=== PATIENT | female | born 1980 | race Caucasian/White ===

== ENCOUNTER → 2016-07-11 | Outpatient (CLI) | payer BC ==
[~2016-07-11] MED LIST: ALBU8.5H2 IH; AMOX1TAB12; AZIT250T5 PO; BUDE180A IH; CITA40TA11; CTRZ10T PO; CYCL10TA9 PO; DILTIAZEM 2% RC; DOCU100T7 PO; ESCI20TA2 PO; HYDR-1231 PO; LACT1CAP8 PO; METR500T21; MULT-985 PO; ONDA4TAB8 PO; PRD10T PO; PROM5SYR PO; SULF-222
--- OUTSIDE RECORDS SUMMARY | 2016-07-11 19:10 | XMS REPORT ---
Author Author ABI GANT Organization [employer] Address Unknown Phone Unavailable Care Team Providers Care Clinical Office Technician Name Role Phone ABI GANT CP Unavailable Allergies, Adverse Reactions, Alerts Substance Reaction Event Type N.K.D.A. Info Not Available Non Drug Allergy Problems Problem Type Condition Code Onset Dates Condition Status Assessment Pre-employment examination Z02.1 Active Medications No Known Medications Procedures Procedure Coding System Code Date DRUG SCREEN NON TLC DEVICES CPT-4 58903 Mar 31, 2016 Office Visit, New Pt., Level 1 CPT-4 36714 Mar 31, 2016 Vital Signs Date/Time: Mar 31, 2016 Cardiac Monitoring Heart Rate 86 bpm Weight 283.2 lbs Height 67 in BMI 44.35 Index Blood Pressure Diastolic 88 mmHg Blood Pressure Systolic 138 mmHg Results Name Result Date Reference Range Unit Abnormality Flag URINE DRUG SCREEN (IN HOUSE) ----BUP Negative 20160331 ----TCA Negative 20160331 ----MDMA Negative 20160331 ----BENZO Negative 20160331 ----OPIATE Negative 20160331 ----THC Negative 20160331 ----MTD Negative 20160331 ----AMPH Negative 20160331 ----BAR Negative [id number] ----PCP Negative 20160331 ----MAMP Negative 20160331 ----OXY Negative [id number] ----Lot # [id number] ----Exp date 20160331 ----Control + [id number] ----COCAINE Negative 20160331 Summary Purpose eClinicalWorks Submission
--- NOTE | 2016-07-11 19:49 | Diagnostic Imaging Report ---
INDICATION: Left foot pain. AP, oblique, and lateral views of the left foot are obtained. FINDINGS: There is prominent plantar calcaneal spurring. No acute fracture or dislocation is identified. No abnormal lytic or sclerotic focus is seen, and there is no radiopaque foreign body. IMPRESSION: No acute abnormality. Dictated by: Dictated on workstation # [id number]
== END ==
LOC: RAD 19:06
PROVIDERS: ATTEND Nurse Practitioner Family
DX: S93.602A Unspecified sprain of left foot, initial encounter (principal); X58.XXXA Exposure to other specified factors, initial encounter; Y99.8 Other external cause status
CPT/HCPCS: 73630

== ENCOUNTER 2016-08-23 18:25 | Emergency (ER) | payer BC ==
[~2016-08-23] VITALS: Ht 170.2 cm; Wt 129.3 kg
[~2016-08-23 18:25] MED LIST changes: -AMOX1TAB12; -CITA40TA11; -LACT1CAP8 PO; -METR500T21; -ONDA4TAB8 PO; -SULF-222
[2016-08-23] MEDS ORDERED: SULF-222 (18:35)
[2016-08-23] MEDS ORDERED: METR500T21 (18:35)
[2016-08-23] MEDS ORDERED: CITA40TA11 (18:35)
[2016-08-23] MEDS ORDERED: AMOX1TAB12 (18:35)
[2016-08-23] MEDS ORDERED: LACTATED RINGERS 1,000 ML IV ONE (18:36)
[2016-08-23] MEDS ORDERED: FAMOTIDINE 20MG/2ML IV (PEPCID) IV STA (18:36)
[2016-08-23] MEDS ORDERED: ONDANSETRON 4 MG/2 ML (SDV) Z0FRAN IVP ONE (18:45)
[2016-08-23 18:47] LABS: BASOPHILS # (AUTO) 0.1 10^3/uL (0.0-0.1); BASOPHILS % (AUTO) 1 % (0-10); EOSINOPHILS # (AUTO) 0.4 10^3/uL (0.0-0.3); EOSINOPHILS % (AUTO) 5 % (0-10); LYMPHOCYTES # (AUTO) 1.7 X 10^3 (1.0-4.0); LYMPHOCYTES % (AUTO) 20 % (12-44); MEAN CORPUSCULAR HEMOGLOBIN 29 PG (25-34); MEAN CORPUSCULAR HGB CONC 35 G/DL (32-36); MEAN CORPUSCULAR VOLUME 83 FL (80-99); MONOCYTES # (AUTO) 1.2 X 10^3 (0.0-1.0); MONOCYTES % (AUTO) 14 % (0-12); NEUTROPHILS # (AUTO) 5.2 X 10^3 (1.8-7.8); NEUTROPHILS % (AUTO) 61 % (42-75); PLATELET COUNT 252 10^3/uL (130-400); RED BLOOD COUNT 5.43 10^6/uL (4.35-5.85); RED CELL DISTRIBUTION WIDTH 13.8 % (10.0-14.5); WHITE BLOOD COUNT 8.5 10^3/uL (4.3-11.0)
[2016-08-23] MEDS ORDERED: NS 100 ML (IVPB) BAG IV ONE (19:00)
[2016-08-23] MEDS ORDERED: IOHEXOL 350 MG/ML 100 ML (OMNIPAQUE 350) VIAL IV ONE (19:00)
--- NOTE | 2016-08-23 19:04 | ED GI ---
General Chief Complaint: Abdominal/GI Problems Stated Complaint: NAUSEA,VOMITING Nursing Triage Note: c/o abdomen cramping, n/v/d x 10 days, reports has been seen by obgyn x 1 and [facility] [place] 2 for same complaints Sepsis Screen: No Definite Risk Source of Information: Patient History of Present Illness Time Seen By Provider: 18:28 Initial Comments PT STATES SHE HAS BEEN ILL SINCE 08/13/16 STATES SHE HAS HAD NAUSEA/VOMITING/DIARRHEA, ABDOMINAL PAIN AND CRAMPING--WORSE FOR THE LAST 3 DAYS STATES PAIN IS "CONSTANT NUMBING PAIN AND SHARP PAINS" ALL OVER ENTIRE ABDOMEN C/O FEELING LETHARGIC HAS VOMITED X 6 BETWEEN 0630 AND 0930--LAST EPISODE WAS AT 0930 HAS HAD WATERY DIARRHEA X 1 THIS AM STATES SHE HAD 2 PIECES OF TOAST AND APPLESAUCE THIS AM, AND DRANK WATER, BUT THREW IT UP. SINCE WAKING AT 1615, SHE HAS KEPT SIPS OF GATORADE HAS URGENCY TO URINATE, BUT ONLY TRICKLES OF URINE OUT STATES SHE WAS SEEN AT [facility] LAST SUNDAY AND DX WITH UTI SAW HER PUBLIC HEALTH ENGINEER, DR. EVANGELISTA THE NEXT DAY AND PELVIC ULTRASOUND WAS ORDERED AND REPORTEDLY NORMAL WENT BACK TO [facility] YESTERDAY AND HAD LAB, STOOL TESTING, AND UA--WAS GIVEN RX FOR AUGMENTIN, FLAGYL AND BACTRIM STATES SHE CALLED [facility] THIS AM AND WAS TOLD TO STOP AUGMENTIN AND START BRATS DIET STATES SHE WENT BACK TO SLEEP AT 0930 AND SLEPT UNTIL 1615, AND WHEN SHE WOKE UP SHE HAD DEVELOPED A FEVER OF 100.3--SHE CALLED [facility] AGAIN AND WAS TOLD TO RESTART AUGMENTIN AND TO COME TO ER NO KNOWN SICK CONTACTS OR SUSPICIOUS FOODS NO HISTORY OF SIMILAR PCP: DR. JANG Allergies and Home Medications Allergies Coded Allergies: No Known Drug Allergies (Unverified , 05/26/13) Home Medications Amoxicillin/Potassium Clav 1 Each Tablet, #20 (Reported) Citalopram Hydrobromide 40 Mg Tablet, #30 (Reported) Lactobacillus Acidophilus 1 Each Capsule, 2 EACH PO QID, #80 Prescribed by: LEYDA AYON on 08/23/162008 Metronidazole 500 Mg Tablet, #42 (Reported) Ondansetron 4 Mg Tab.rapdis, 4-8 MG PO Q4H, #15 Prescribed by: LEYDA AYON on 08/23/162008 Sulfamethoxazole/Trimethoprim 1 Each Tablet, #20 (Reported) Review of Systems Constitutional: see HPI, fever, malaise, weakness EENTM: No Symptoms Reported Respiratory: No Symptoms Reported Cardiovascular: No Symptoms Reported Gastrointestinal: See HPI, Abdominal Pain, Diarrhea, Nausea, Poor Appetite, Poor Fluid Intake, Vomiting Genitourinary: No Symptoms Reported Musculoskeletal: no symptoms reported Skin: no symptoms reported Psychiatric/Neurological: No Symptoms Reported Endocrine: No Symptoms Reported Hematologic/Lymphatic: No Symptoms Reported Past Tnxpajv-Bnknqz-[id number] Hx Patient Social History Alcohol Use: Occasionally Uses (NO ETOH X 1 MONTH, PER PT ON 08/23/16) Recreational Drug Use: Yes (THC--LAST USED 1 WEEK AGO, PER PT ON 08/23/16) Smoking Status: Current Everyday Smoker (1/2 PPD) Type Used: Cigarettes 2nd Hand Smoke Exposure: No Recent Foreign Travel: No Contact w/Someone Who Travel: No Recent Infectious Disease Expo: No Recent Hopitalizations: No Immunizations Up To Date Tetanus Booster (TDap): Less than 5yrs Seasonal Allergies Seasonal Allergies: Yes Surgeries HX Surgeries: Yes (POLYPS REMOVED, PARTIAL HYST/OVARIES INTACT, ) Surgeries: Hysterectomy Respiratory Hx Respiratory Disorders: Yes (ASTHMA) Respiratory Disorders: Asthma Cardiovascular Hx Cardiac Disorders: No Neurological Hx Neurological Disorders: No Reproductive System Hx Reproductive Disorders: Yes 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 Genitourinary Hx Genitourinary Disorders: Yes Genitourinary Disorders: Kidney Stones Gastrointestinal Hx Gastrointestinal Disorders: No Musculoskeletal Hx Musculoskeletal Disorders: No Endocrine Hx Endocrine Disorders: No HEENT HX ENT Disorders: No Cancer Hx Cancer: No Psychosocial Hx Psychiatric Problems: Yes Behavioral Health Disorders: Anxiety, Depression Integumentary HX Skin/Integumentary Disorder: No Blood Transfusions Hx Blood Disorders: No Physical Exam Vital Signs VS - Last 72 Hours, by Label 08/23/16 08/23/16 18:30 20:22 Temp 97.8 Pulse 95 75 Resp 18 18 B/P (MAP) 144/93 Pulse Ox 96 98 Capillary Refill : Less Than 3 Seconds General Appearance: WD/WN, no apparent distress, obese, other (DOES NOT APPEAR ILL OR TO BE IN ANY DISCOMFORT--WALKS UPRIGHT AND MOVES QUICKLY WITHOUT DIFFICULTY, [id number] WITHOUT DIFFICULTY) HEENT: PERRL/EOMI, other (ORAL MUCOSA MOIST) Neck: normal inspection Respiratory: normal breath sounds, no respiratory distress, no accessory muscle use Cardiovascular: normal peripheral pulses, regular rate, rhythm, no edema, no JVD, no murmur Gastrointestinal: normal bowel sounds, non tender, soft, no organomegaly, no pulsatile mass, No hernia, No mass Extremities: normal inspection Back: normal inspection, no CVA tenderness, no vertebral tenderness Neurologic/Psychiatric: 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-XII nml as tested, no motor/sensory deficits, alert, normal mood/affect, oriented x 3 Skin: normal color, warm/dry, No rash, tattoos/piercings (+ TATTOOS) Focused Exam Lactic Acid Level Laboratory Tests Test 08/23/16 19:07 Lactic Acid Level 0.85 MMOL/L (0.50-2.00) Progress/Results/Core Measures Results/Orders Lab Results Laboratory Tests Test 08/23/16 18:35 08/23/16 19:07 08/23/16 19:30 Range/Units White Blood Count 8.5 4.3-11.0 10^3/uL Red Blood Count 5.43 4.35-5.85 10^6/uL Hemoglobin 15.6 11.5-16.0 G/DL Hematocrit 45 35-52 % Mean Corpuscular Volume 83 80-99 FL Mean Corpuscular Hemoglobin 29 25-34 PG Mean Corpuscular Hemoglobin Concent 35 32-36 G/DL Red Cell Distribution Width 13.8 10.0-14.5 % Platelet Count 252 130-400 10^3/uL Mean Platelet Volume 10.0 7.4-10.4 FL Neutrophils (%) (Auto) 61 42-75 % Lymphocytes (%) (Auto) 20 12-44 % Monocytes (%) (Auto) 14 H 0-12 % Eosinophils (%) (Auto) 5 0-10 % Basophils (%) (Auto) 1 0-10 % Neutrophils # (Auto) 5.2 1.8-7.8 X 10^3 Lymphocytes # (Auto) 1.7 1.0-4.0 X 10^3 Monocytes # (Auto) 1.2 H 0.0-1.0 X 10^3 Eosinophils # (Auto) 0.4 H 0.0-0.3 10^3/uL Basophils # (Auto) 0.1 0.0-0.1 10^3/uL Sodium Level 138 135-145 MMOL/L Potassium Level 3.8 3.6-5.0 MMOL/L Chloride Level 106 98-107 MMOL/L Carbon Dioxide Level 21 21-32 MMOL/L Anion Gap 11 5-14 MMOL/L Blood Urea Nitrogen 9 7-18 MG/DL Creatinine 1.11 0.60-1.30 MG/DL Estimat Glomerular Filtration Rate 55 BUN/Creatinine Ratio 8 Glucose Level 120 H 70-105 MG/DL Calcium Level 9.2 8.5-10.1 MG/DL Magnesium Level 2.0 1.8-2.4 MG/DL Total Bilirubin 0.8 0.1-1.0 MG/DL Aspartate Amino Transf (AST/SGOT) 43 H 5-34 U/L Alanine Aminotransferase (ALT/SGPT) 73 H 0-55 U/L Alkaline Phosphatase 76 40-136 U/L Total Protein 7.5 6.4-8.2 G/DL Albumin 4.2 3.2-4.5 G/DL Amylase Level 39 25-125 U/L Lipase 13 8-78 U/L Serum Alcohol < 10 <10 MG/DL Lactic Acid Level 0.85 0.50-2.00 MMOL/L Urine Color YELLOW Urine Clarity SLIGHTLY CLOUDY Urine pH 6 5-9 Urine Specific [place] 1.020 1.016-1.022 Urine Protein 2+ H NEGATIVE Urine Glucose (UA) NEGATIVE NEGATIVE Urine Ketones 1+ H NEGATIVE Urine Nitrite NEGATIVE NEGATIVE Urine Bilirubin NEGATIVE NEGATIVE Urine Urobilinogen 1 NORMAL MG/DL Urine Leukocyte Esterase 2+ H NEGATIVE Urine RBC (Auto) 3+ H NEGATIVE Urine RBC 2-5 H /HPF Urine WBC 0-2 /HPF Urine Squamous Epithelial Cells 0-2 /HPF Urine Crystals NONE /LPF Urine Bacteria FEW H /HPF Urine Casts NONE /LPF Urine Mucus NEGATIVE /LPF Urine Culture Indicated NO Urine Opiates Screen NEGATIVE NEGATIVE Urine Oxycodone Screen NEGATIVE NEGATIVE Urine Methadone Screen NEGATIVE NEGATIVE Urine Propoxyphene Screen NEGATIVE NEGATIVE Urine Barbiturates Screen NEGATIVE NEGATIVE Ur Tricyclic Antidepressants Screen NEGATIVE NEGATIVE Urine Phencyclidine Screen NEGATIVE NEGATIVE Urine Amphetamines Screen NEGATIVE NEGATIVE Urine Methamphetamines Screen NEGATIVE NEGATIVE Urine Benzodiazepines Screen POSITIVE H NEGATIVE Urine Cocaine Screen NEGATIVE NEGATIVE Urine Cannabinoids Screen POSITIVE H NEGATIVE My Orders Orders - LEYDA AYON DO Saline Lock/Iv-Start (08/23/16 18:36) Orthostatic Vital Signs (08/23/16 18:36) Monitor-Rhythm Ecg Trace Only (08/23/16 18:36) Ct Abdomen/Pelvis W (08/23/16 18:36) Alcohol (08/23/16 18:36) Amylase (08/23/16 18:36) Cbc With Automated Diff (08/23/16 18:36) Comprehensive Metabolic Panel (08/23/16 18:36) Drug Screen Stat (Urine) (08/23/16 18:36) Lactic Acid Analyzer (08/23/16 18:36) Lipase (08/23/16 18:36) Magnesium (08/23/16 18:36) Ua Culture If Indicated (08/23/16 18:36) Blood Culture (08/23/16 18:36) Acute Abd Series (08/23/16 18:36) Ondansetron Injection (Zofran Injectio (08/23/16 18:45) Famotidine Injection (Pepcid Injection) (08/23/16 18:36) Saline Lock/Iv-Start (08/23/16 18:36) Lactated Ringers (Lr 1000 Ml Iv Solution (08/23/16 18:36) Iohexol Injection (Omnipaque 350 Mg/Ml 1 (08/23/16 19:00) Ns (Ivpb) (Sodium Chloride 0.9% Ivpb Bag (08/23/16 19:00) Hepatitis Panel Acute (08/23/16 19:12) Urine Culture (08/23/16 19:55) Medications Given in ED Current Medications Medications Dose Ordered Sig/Iveth Route Start Time Stop Time Status Last Admin Dose Admin Iohexol 100 ml ONCE ONCE IV 08/23/16 19:00 08/23/16 19:01 DC 08/23/16 19:17 100 ML Lactated Ringer's 1,000 ml @ 0 mls/hr Q0M ONCE IV 08/23/16 18:36 08/23/16 18:39 DC 08/23/16 19:32 0 MLS/HR Ondansetron HCl 8 mg ONCE ONCE IVP 08/23/16 18:45 08/23/16 18:46 DC 08/23/16 19:32 8 MG Sodium Chloride 100 ml ONCE ONCE IV 08/23/16 19:00 08/23/16 19:01 DC 08/23/16 19:17 80 ML Vital Signs/I&O Vital Sign - Last 12Hours 08/23/16 08/23/16 18:30 20:22 Temp 97.8 Pulse 95 75 Resp 18 18 B/P (MAP) 144/93 Pulse Ox 96 98 Blood Pressure Mean: 110 Progress Note : Progress Note NO SYMPTOMS DURING ER STAY--NO ABDOMINAL PAIN, NO VOMITING OR DIARRHEA, AND NO FEVER WILL ORDER OUTPATIENT STOOL STUDIES Diagnostic Imaging Comments ACUTE ABDOMEN XRAYS--LEFT RENAL STONE, OTHERWISE NO ACUTE PROCESS CT ABDOMEN/PELVIS--NO ACUTE PROCESS, 5MM LEFT INTRARENAL STONE/NON-OBSTRUCTING, 2.5 CM RIGHT OVARIAN CYST PER RADIOLOGIST REPORTS @ 1945 Reviewed: Reviewed by Me Departure Impression Impression: Primary Impression: Gastroenteritis Additional Impressions: MILDLY ELEVATED LIVER ENZYMES Urinary tract infection Disposition: HOME, SELF-CARE Condition: Stable Departure-Patient Inst. Referrals: JUANCARLOS JANG MD (PCP/Family) Primary Care Physician Patient Instructions: [id number], Liver Function Test, Urinary Tract Infection, Adult (DC) Add. Discharge Instructions: CONTINUE BACTRIM DS 1 PILL TWICE A DAY, AND CONTINUE FLAGYL 500 MG 4 TIMES A DAY CLEAR LIQUIDS--WATER, BROTH, JELLO, GATORADE BRATS DIET--BANANAS, RICE, APPLESAUCE, TOAST, SALTINES FOLLOW UP WITH DR. JANG IN 2 DAYS FOR FURTHER CARE All discharge instructions reviewed with patient and/or family. Voiced understanding. Scripts Ondansetron (Zofran Odt) 4 Mg Tab.rapdis 4-8 MG PO Q4H for Nausea/Vomiting, #15 TAB Prov: LEYDA AYON DO 08/23/16 Lactobacillus Acidophilus (Acidophilus) 1 Each Capsule 2 EACH PO QID, #80 CAP Prov: LEYDA AYON DO 08/23/16 LEYDA AYON DO Aug 23, 2016 19:04
[2016-08-23 19:09] LABS: ALANINE AMINOTRANSFERASE 73 U/L (0-55); ALBUMIN 4.2 G/DL (3.2-4.5); ALCOHOL < 10 MG/DL (<10); AMYLASE 39 U/L (25-125); ANION GAP 11 MMOL/L (5-14); ASPARTATE AMINO TRANSFERASE 43 U/L (5-34); BILIRUBIN,TOTAL 0.8 MG/DL (0.1-1.0); BLOOD UREA NITROGEN 9 MG/DL (7-18); BUN/CREATININE RATIO 8; CALCIUM 9.2 MG/DL (8.5-10.1); CARBON DIOXIDE 21 MMOL/L (21-32); CHLORIDE 106 MMOL/L (98-107); CREATININE SERUM 1.11 MG/DL (0.60-1.30); GFR ESTIMATED 55; GLUCOSE 120 MG/DL (70-105); LIPASE 13 U/L (8-78); POTASSIUM 3.8 MMOL/L (3.6-5.0); SODIUM 138 MMOL/L (135-145); TOTAL PROTEIN 7.5 G/DL (6.4-8.2)
--- NOTE | 2016-08-23 19:20 | Diagnostic Imaging Report ---
INDICATION: Abdominal pain. EXAMINATION: PA chest and supine and upright abdominal images were obtained. FINDINGS: There is a 4 mm calculus projecting over the lower pole of the left kidney. Bowel gas pattern is normal. There is no intraperitoneal free air. IMPRESSION: Left renal calculus. Dictated by: Dictated on workstation # [id number]
--- NOTE | 2016-08-23 19:35 | Diagnostic Imaging Report ---
PROCEDURE: CT abdomen and pelvis with contrast. TECHNIQUE: Multiple contiguous axial images were obtained through the abdomen and pelvis after administration of intravenous contrast. INDICATION: Abdominal pain and fever Lung bases are clear. Liver appears normal. Gallbladder is present. Pancreas is normal. Spleen is not enlarged. Adrenals appear normal. There is a 5 mm calculus in the inferior pole of the left kidney. There is no hydronephrosis. Aorta is unremarkable. Appendix is normal. Small bowel is not dilated. Colon appears normal. There is a 2.5 cm cyst on the right ovary. Uterus is surgically absent. Left ovary is present and appears normal. There is no intraperitoneal free air or free fluid. IMPRESSION: Left nephrolithiasis. No acute abnormality seen. Dictated by: Dictated on workstation # [id number]
[2016-08-23 19:43] LABS: BILIRUBIN,URINE NEGATIVE (NEGATIVE); KETONES,URINE 1+ (NEGATIVE); LEUKOCYTE ESTERASE ,URINE 2+ (NEGATIVE); NITRITE,URINE NEGATIVE (NEGATIVE); PH,URINE 6 (5-9); PROTEIN,URINE 2+ (NEGATIVE); UROBILINOGEN,URINE 1 MG/DL (NORMAL)
[2016-08-23 19:52] LABS: SQUAMOUS EPITHELIAL CELL,UR 0-2 /HPF; WBC,URINE 0-2 /HPF
[2016-08-23] MEDS ORDERED: ONDA4TAB8 PO (20:09)
[2016-08-23] MEDS ORDERED: LACT1CAP8 PO (20:09)
[2016-08-23 20:22] VITALS: BP 117/78
--- OUTSIDE RECORDS SUMMARY | 2016-09-24 17:59 | XMS REPORT ---
Author Author ABI GANT Organization [employer] Address Unknown Phone Unavailable Care Team Providers Care Warrant Server Name Role Phone ABI GANT CP Unavailable Allergies, Adverse Reactions, Alerts Substance Reaction Event Type N.K.D.A. Info Not Available Non Drug Allergy Problems Problem Type Condition Code Onset Dates Condition Status Assessment Pre-employment examination Z02.1 Active Medications No Known Medications Procedures Procedure Coding System Code Date DRUG SCREEN NON TLC DEVICES CPT-4 14892 Mar 31, 2016 Office Visit, New Pt., Level 1 CPT-4 01514 Mar 31, 2016 Vital Signs Date/Time: Mar [...] Negative 20160331 ----OXY Negative 20160331 ----Lot # [id number] ----Exp date 20160331 ----Control + 20160331 ----COCAINE Negative 20160331 Summary Purpose eClinicalWorks Submission
--- OUTSIDE RECORDS SUMMARY | 2016-09-24 18:00 | XMS REPORT ---
Author ISAAC Benítez [employer] Address Unknown Phone Unavailable Care Team Providers Care Distillery Laborer Name Role Phone ISAAC BLANKENSHIP CP Unavailable Allergies No Known Allergies Problems Problem Type Condition Code Onset Dates Condition Status Assessment Visit for TB skin test Z11.1 Active Medications No Known Medications Procedures Procedure Coding System Code Date TB INTRADERMAL TEST CPT-4 56676 Apr 03, 2016 Results Name Result Date Reference Range Unit Abnormality Flag TB INTRADERMAL ----INDURATION (mm) 0 20160405 0 - 15 mm ----Time Read 16120160405 ----Date read 04/05/201620160405 ----Injected by Jeronimo 20160405 ----Exp. date 20160405 ----Read by Jeronimo 20160405 ----Date injected 04/03/201620160405 ----RESULTS (Pos/Neg) negative 20160405 ----Time Injected 13020160405 ----Site LFA 20160405 ----Lot # [id number] Summary Purpose [employer]ClinicalWorks Submission
--- OUTSIDE RECORDS SUMMARY | 2016-09-24 18:00 | XMS REPORT | Continuity of Care Document ---
Author Author [facility] Organization [facility] Address Unknown Phone Unavailable Allergies Active Description Code Type Severity Reaction Onset Reported/Identified Relationship to Patient Clinical Status Yes No Known Drug Allergies [id number] Drug Allergy Unknown N/ A 05/26/2013 Medications Problems Date Dx Coded Attending Type Code Diagnosis Diagnosed By 05/26/2013 AMELIA MENARD Ot 844.9 SPRAIN OF KNEE LEG NOS 05/26/2013 AMELIA MENARD Ot 959.7 LOWER LEG INJURY NOS 05/26/2013 AMELIA MENARD Ot E000.8 OTHER EXTERNAL CAUSE STATUS 05/26/2013 AMELIA MENARD Ot E003.2 ACTIVITIES INVG SNOW SKIING/BOARDING/ SLE 05/26/2013 AMELIA MENARD Ot E849.[address] NEC 05/26/2013 AMELIA MENARD Ot E927.0 OVEREXERTION FROM SUDDEN STRENUOUS MOVEM 04/03/2014 LAINE TORRES, JUANCARLOS R Ot 780.60 04/03/2014 LAINE TORRES, JUANCARLOS R Ot 787.91 04/06/2014 JUANCARLOS JANG MD R Ot 780.60 04/06/2014 JUANCARLOS JANG MD R Ot 787.91 04/27/2014 LAINE TORRES, JUANCARLOS R Ot 780.60 04/27/2014 LAINE TORRES, JUANCARLOS R Ot 787.91 12/30/2014 EDGARD CLANCY CLAMP OPERATOR Ot 466.0 ACUTE BRONCHITIS 12/30/2014 EDGARD CLANCY CLAMP OPERATOR Ot 786.2 COUGH 01/15/2015 LAINE TORRES, JUANCARLOS R Ot 786.2 06/14/2015 NAVA RAMOS DOR L Ot F17.210 NICOTINE DEPENDENCE, CIGARETTES, UNCOMPL 06/14/2015 RACHEL KLEIN TOSHIA L Ot K64.4 RESIDUAL HEMORRHOIDAL SKIN TAGS 07/27/2015 Ot 786.2 07/27/2015 Ot 786.52 07/27/2015 Ot 807.01 07/27/2015 Ot E000.8 07/27/2015 Ot E928.9 07/27/2015 LAINE TORRES, JUANCARLOS R Ot 490 07/27/2015 LAINE TORRES, JUANCARLOS R Ot 780.60 07/27/2015 LAINE TORRES, JUANCARLOS R Ot 787.91 07/27/2015 LAINE TORRES, JUANCARLOS R Ot 786.2 07/27/2015 EVERARDO HANNA DO Ot Z01.818 07/27/2015 EVERARDO HANNA DO Ot K60.2 ANAL FISSURE, UNSPECIFIED 07/27/2015 HANNA EVERARDO KLEIN Ot K62.1 RECTAL POLYP 07/27/2015 HANNA EVERARDO KLEIN Ot Z80.0 FAMILY HISTORY OF MALIGNANT NEOPLASM OF 07/11/2016 Ot 786.2 COUGH 07/11/2016 Ot 786.52 PAINFUL RESPIRATION 07/11/2016 Ot 807.01 FRACTURE ONE RIB-CLOSED 07/11/2016 Ot E000.8 OTHER EXTERNAL CAUSE STATUS 07/11/2016 Ot E928.9 ACCIDENT NOS 07/11/2016 LAINE TORRES, JUANCARLOS R Ot 490 BRONCHITIS NOS 07/11/2016 LAINE TORRES, JUANCARLOS R Ot 780.60 FEVER, UNSPECIFIED 07/11/2016 LAINE TORRES, JUANCARLOS R Ot 787.91 DIARRHEA 07/11/2016 LAINE TORRES, JUANCARLOS R Ot 786.2 COUGH 07/11/2016 HANNAEVERARDO CABRERA DO Ot Z01.818 ENCOUNTER FOR OTHER PREPROCEDURAL EXAMIN 07/18/2016 CHARO CARRINGTON Ot S93.602A UNSPECIFIED SPRAIN OF LEFT FOOT, INITIAL 07/18/2016 CHARO CARRINGTON Ot X58.XXXA EXPOSURE TO OTHER SPECIFIED FACTORS , INI 07/18/2016 CHARO CARRINGTON Ot Y99.8 OTHER EXTERNAL CAUSE STATUS 07/20/2016 CHARO CARRINGTON Ot S93.602A UNSPECIFIED SPRAIN OF LEFT FOOT, INITIAL 07/20/2016 CHARO CARRINGTON Ot X58.XXXA EXPOSURE TO OTHER SPECIFIED FACTORS , INI 07/20/2016 CHARO CARRINGTON Ot Y99.8 OTHER EXTERNAL CAUSE STATUS 08/23/2016 GABO DO, LEYDA K Ot F17.210 NICOTINE DEPENDENCE, CIGARETTES, UNCOMPL 08/23/2016 GABO DO, LEYDA K Ot K52.9 NONINFECTIVE GASTROENTERITIS AND COLITIS 08/23/2016 GABO DO, LEYDA K Ot N20.0 CALCULUS OF KIDNEY 08/23/2016 GABO DO, LEYDA K Ot N39.0 URINARY TRACT INFECTION, SITE NOT SPECIF 08/23/2016 GABO DO, LEYDA K Ot N83.201 UNSPECIFIED OVARIAN CYST, RIGHT SIDE 08/23/2016 GABO DO, LEYDA K Ot R11.2 NAUSEA WITH VOMITING, UNSPECIFIED 08/24/2016 GABO DO, LEYDA K Ot F17.210 NICOTINE DEPENDENCE, CIGARETTES, UNCOMPL 08/24/2016 GABO DO, LEYDA K Ot K52.9 NONINFECTIVE GASTROENTERITIS AND COLITIS 08/24/2016 GABO DO, LEYDA K Ot N20.0 CALCULUS OF KIDNEY 08/24/2016 GABO DO, LEYDA K Ot N39.0 URINARY TRACT INFECTION, SITE NOT SPECIF 08/24/2016 GABO DO, LEYDA K Ot N83.201 UNSPECIFIED OVARIAN CYST, RIGHT SIDE 08/24/2016 GABO DO, LEYDA K Ot R11.2 NAUSEA WITH VOMITING, UNSPECIFIED 09/08/2016 GABO DO, LEYDA K Ot R19.7 DIARRHEA, UNSPECIFIED Procedures Results Test Result Range Complete blood count (CBC) with automated white blood cell (WBC) differential - 08/23/16 18:35 Blood leukocytes automated count (number/volume) 8.5 10*3/ uL 4.3-11.0 Blood erythrocytes automated count (number/volume) 5.43 10*6 /uL 4.35-5.85 Venous blood hemoglobin measurement (mass/volume) 15.6 g/dL 11.5-16.0 Blood hematocrit (volume fraction) 45 % 35-52 Automated erythrocyte mean corpuscular volume 83 [foz_us] 80-99 Automated erythrocyte mean corpuscular hemoglobin (mass per erythrocyte) 29 pg 25-34 Automated erythrocyte mean corpuscular hemoglobin concentration measurement ( mass/volume) 35 g/dL 32-36 Automated erythrocyte distribution width ratio 13.8 % 10.0-14.5 Automated blood platelet count (count/volume) 252 10*3/uL 130-400 Automated blood platelet mean volume measurement 10.0 [foz_ us] 7.4-10.4 Automated blood neutrophils/100 leukocytes 61 % 42-75 Automated blood lymphocytes/100 leukocytes 20 % 12-44 Blood monocytes/100 leukocytes 14 % 0-12 Automated blood eosinophils/100 leukocytes 5 % 0-10 Automated blood basophils/100 leukocytes 1 % 0-10 Blood neutrophils automated count (number/volume) 5.2 10*3 1.8-7.8 Blood lymphocytes automated count (number/volume) 1.7 10*3 1.0-4.0 Blood monocytes automated count (number/volume) 1.2 10*3 0.0-1.0 Automated eosinophil count 0.4 10*3/uL 0.0-0.3 Automated blood basophil count (count/volume) 0.1 10*3/uL 0.0-0.1 Comprehensive metabolic panel - 08/23/16 18:35 Serum or plasma sodium measurement (moles/volume) 138 mmol/ L 135-145 Serum or plasma potassium measurement (moles/volume) 3.8 mmol/L 3.6-5.0 Serum or plasma chloride measurement (moles/volume) 106 mmol /L 98-107 Carbon dioxide 21 mmol/L 21-32 Serum or plasma anion gap determination (moles/volume) 11 mmol/L 5-14 Serum or plasma urea nitrogen measurement (mass/volume) 9 mg /dL 7-18 Serum or plasma creatinine measurement (mass/volume) 1.11 mg /dL 0.60-1.30 Serum or plasma urea nitrogen/creatinine mass ratio 8 NRG Serum or plasma creatinine measurement with calculation of estimated glomerular filtration rate 55 NRG Serum or plasma glucose measurement (mass/volume) 120 mg/dL 70-105 Serum or plasma calcium measurement (mass/volume) 9.2 mg/dL 8.5-10.1 Serum or plasma total bilirubin measurement (mass/volume) 0.8 mg/dL 0.1-1.0 Serum or plasma alkaline phosphatase measurement (enzymatic activity/volume) 76 U/L 40-136 Serum or plasma aspartate aminotransferase measurement (enzymatic activity/ volume) 43 U/L 5-34 Serum or plasma alanine aminotransferase measurement (enzymatic activity/volume ) 73 U/L 0-55 Serum or plasma protein measurement (mass/volume) 7.5 g/dL 6.4-8.2 Serum or plasma albumin measurement (mass/volume) 4.2 g/dL 3.2-4.5 Magnesium - 08/23/16 18:35 Magnesium 2.0 mg/dL 1.8-2.4 Serum or plasma amylase measurement (enzymatic activity/volume) - 08/23/16 18: 35 Serum or plasma amylase measurement (enzymatic activity/volume) 39 U/L 25-125 Lipase - 08/23/16 18:35 Lipase 13 U/L 8-78 Serum or plasma ethanol measurement (mass/volume) - 08/23/16 18:35 Serum or plasma ethanol measurement (mass/volume) < mg/dL <10 Blood lactic acid measurement (moles/volume) - 08/23/16 19:07 Blood lactic acid measurement (moles/volume) 0.85 mmol/L 0.50-2.00 Bacterial blood culture - 08/23/16 19:07 Bacterial blood culture NG NRG Acute hepatitis panel - 08/23/16 19:07 Confirmatory quantitative serum or plasma hepatitis B virus surface antigen measurement Non-Reactive Non-Reactive Hepatitis A virus IgM antibody assay Non-Reactive Non-Reactive Hepatitis B virus core IgM antibody assay Non-Reactive Non-Reactive Serum hepatitis C virus antibody detection Non-Reactive Non-Reactive Complete urinalysis with reflex to culture - 08/23/16 19:30 Urine color determination YELLOW NRG Urine clarity determination SLIGHTLY CLOUDY NRG Urine pH measurement by test strip 6 5- 9 Specific gravity of urine by test strip 1.020 1.016-1.022 Urine protein assay by test strip, semi-quantitative 2+ NEGATIVE Urine glucose detection by automated test strip NEGATIVE NEGATIVE Erythrocytes detection in urine sediment by light microscopy 3+ NEGATIVE Urine ketones detection by automated test strip 1+ NEGATIVE Urine nitrite detection by test strip NEGATIVE NEGATIVE Urine total bilirubin detection by test strip NEGATIVE NEGATIVE Urine urobilinogen measurement by automated test strip (mass/volume) 1 mg/dL NORMAL Urine leukocyte esterase detection by dipstick 2+ NEGATIVE Automated urine sediment erythrocyte count by microscopy (number/high power field) [HPF] NRG Automated urine sediment leukocyte count by microscopy (number/high power field ) [HPF] NRG Bacteria detection in urine sediment by light microscopy FEW NRG Squamous epithelial cells detection in urine sediment by light microscopy 0-2 NRG Crystals detection in urine sediment by light microscopy NONE NRG Casts detection in urine sediment by light microscopy NONE NRG Mucus detection in urine sediment by light microscopy NEGATIVE NRG Complete urinalysis with reflex to culture NO NRG Urine drug screening test - 08/23/16 19:30 Urine phencyclidine detection by screening method NEGATIVE NEGATIVE Urine benzodiazepines detection by screening method POSITIVE NEGATIVE Urine cocaine detection NEGATIVE NEGATIVE Urine amphetamines detection by screening method NEGATIVE NEGATIVE Urine methamphetamine detection by screening method NEGATIVE NEGATIVE Urine cannabinoids detection by screening method POSITIVE NEGATIVE Urine opiates detection by screening method NEGATIVE NEGATIVE Urine barbiturates detection NEGATIVE NEGATIVE Screening urine tricyclic antidepressants detection NEGATIVE NEGATIVE Urine methadone detection by screening method NEGATIVE NEGATIVE Urine oxycodone detection NEGATIVE NEGATIVE Urine propoxyphene detection NEGATIVE NEGATIVE Bacterial urine culture - 08/23/16 19:30 URINE CULTURE RESULTS <10,000/ML NRG Bacterial blood culture - 08/23/16 19:30 Bacterial blood culture NG NRG [id number] - 08/23/16 21:30 RESULTS INDETERMINANT; MOLECULAR TEST TO FOLLOW NRG Stool leukocytes detection by light microscopy - 08/23/16 21:30 FECAL WBC RESULTS OCCASIONAL WBC OBSERVED ON DIRECT SMEAR NRG FECAL NOTE FECAL LEUKOCYTES MAY BE INTERMITTENTLY PRESENT OR NRG FECAL NOTE UNEVENLY DISTRIBUTED IN STOOL SPECIMENS, AND WBC NRG FECAL NOTE MORPHOLOGY DEGRADES DURING TRANSPORT NRG FECAL NOTE NOTE: NRG Clostridium difficile detection - 08/23/16 21:30 C DIFF MOLECULAR RESULT Negative for toxigenic C diff by DNA amplification NRG Stool bacteria identification by culture - 08/23/16 21:30 Stool bacteria identification by culture N2 NRG Encounters ACCT No. Visit Date/Time Discharge Status Pt. Type Provider Facility Loc./Unit Complaint [id number] 08/23/2016 18:27:00 2016 20:21:00 DIS Emergency GABO DO LEYDA K [facility] ER NAUSEA,VOMITING [id number] 07/27/2015 07:50:00 2015 10:00:00 DIS Outpatient EVERARDO HANNA DO [facility] SDC ANAL FISSURE [id number] 06/14/2015 09:24:00 2015 10:32:00 DIS Emergency TOSHIA RAMOS DO [facility] ER RECTAL PAIN [id number] 12/30/2014 20:01:00 2014 20:48:00 DIS Emergency EDGARD CLANCY APRN [facility] ER COUGH;SOA [id number] 12/29/2014 11:04:00 2014 23:59:59 CLS Outpatient JUANCARLOS JANG MD [facility] RAD PERSISTENT COUGH [id number] 04/02/2014 13:59:00 2013 23:59:59 CLS Outpatient JUANCARLOS JANG MD [facility] LAB FEVER,DIARRHEA [id number] 05/26/2013 11:02:00 2013 13:30:00 DIS Emergency AMELIA MENARD [facility] ER LEFT KNEE INJURY [id number] 02/20/2013 15:59:00 2012 23:59:59 CLS Outpatient JUANCARLOS JANG MD [facility] LAB PERSISTANT COUGH,FEVER [id number] 08/23/2016 22:17:00 ACT Outpatient LEYDA AYON DO [facility] LAB DIARRHEA [id number] 07/11/2016 19:06:00 ACT Outpatient CHARO CARRINGTON [facility] RAD FOOT SPRAIN LEFT INITIAL ENCOUNTER [id number] 07/23/2015 05:42:00 ACT Outpatient EVERARDO HANNA DO [facility] PREOP COLONOSCOPY [id number] 08/18/2011 11:04:00 Document Registration [id number] 08/01/2011 11:18:00 Document Registration [id number] 05/17/2011 12:14:00 Document Registration
== END 2016-08-23 20:21 | disposition home or self-care (01) ==
LOC: EDUNIT# 18:25 → ER 18:27
DX: K52.9 Noninfective gastroenteritis and colitis, unspecified (principal); N20.0 Calculus of kidney; N39.0 Urinary tract infection, site not specified; N83.201 Unspecified ovarian cyst, right side; F17.210 Nicotine dependence, cigarettes, uncomplicated
CPT/HCPCS: 36415; 74022; 74177; 80053; 80074; 80306; 80320; 81000; 82150; 83605; 83690; 83735; 85025; 87040; 87088; 96361; 96374; 96375

== ENCOUNTER → 2016-08-23 | Outpatient (CLI) | payer BC | LOC: LAB 22:17 | PROVIDERS: ATTEND Emergency Medicine | DX: R19.7 Diarrhea, unspecified (principal) | CPT/HCPCS: 87045; 87046; 87324; 87449; 87493; 89055 ==

== ENCOUNTER 2016-10-20 18:39 | Emergency (ER) | payer BC ==
[~2016-10-20] VITALS: Ht 170.2 cm; Wt 129.3 kg
[~2016-10-20 18:39] MED LIST changes: +AMOX1TAB12; +CITA40TA11; +LACT1CAP8 PO; +METR500T21; +ONDA4TAB8 PO; +SULF-222
[2016-10-20] MEDS ORDERED: [UNRECOGNIZED DRUG - CODE] (19:08)
--- NOTE | 2016-10-20 19:37 | ED GI ---
General Chief Complaint: Rect Problems Stated Complaint: ANAL PAIN Nursing Triage Note: patient reports was recently diagnosed with an anal fissure and was given a cream script from Dr. Acosta, patient reports that she ran out of cream today and wasn't able to get another script. patient reports she is to follow up with Karla on sunday Sepsis Screen: No Definite Risk Source of Information: Patient, RN Notes Reviewed Exam Limitations: No Limitations History of Present Illness Time Seen By Provider: 19:20 Initial Comments Patient presents c/ c/o rectal pain secondary to an anal fissure dx by Dr. Acosta. Has been using Diltiazem cream topically and doing sitz baths. Ran out of the cream today and called Dr. Acosta's office who was supposedly to call in a RF to [facility], but when she checked c/ them just prior to them closing this PM, they had no record of a RF being authorized. Is suppose to f/u lucy/ Dr. Acosta on Sunday. Just needs something to get her thru the weekend. Rates her pain an 8/10. Timing/Duration: Constant, Other (going on for couple weeks) Severity/Quality: Severe (8/10), Sharp, Stabbing Location: Other (rectal) Radiation: No Radiation Activities at Onset: Other (unknown) Modifying Factors: Worsens With Defecating, Improves With Other (certain positions help and others worsen her pain ) Associated Symptoms: Denies Symptoms Allergies and Home Medications Allergies Coded Allergies: No Known Drug Allergies (Unverified , 05/26/13) Home Medications Citalopram Hydrobromide 40 Mg Tablet, #30 (Reported) Diltiazem HCl 10 Gm Powder, #30 (Reported) Hydrocodone/Acetaminophen 1 Each Tablet, 1 EACH PO Q6H, #24 Ref 0 Prescribed by: MANUEL DUFFY on 10/20/161940 Review of Systems Constitutional: see HPI Gastrointestinal: See HPI, Other (rectal pain) All Other Systems Reviewed Negative Unless Noted: Yes (Negative excepted noted.) Past Zinlsom-Fxdswc-Riaagi Hx Patient Social History Alcohol Use: Denies Use Recreational Drug Use: No Smoking Status: Current Everyday Smoker Type Used: Cigarettes 2nd Hand Smoke Exposure: No Recent Foreign Travel: No Contact w/Someone Who Travel: No Recent Infectious Disease Expo: No Recent Hopitalizations: No Immunizations Up To Date Tetanus Booster (TDap): Less than 5yrs Seasonal Allergies Seasonal Allergies: Yes Surgeries HX Surgeries: Yes (POLYPS REMOVED, PARTIAL HYST/OVARIES INTACT, ) Surgeries: Hysterectomy Respiratory Hx Respiratory Disorders: Yes (ASTHMA) Respiratory Disorders: Asthma Cardiovascular Hx Cardiac Disorders: No Neurological Hx Neurological Disorders: No Reproductive System 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 Genitourinary Hx Genitourinary Disorders: No Genitourinary Disorders: Kidney Stones Gastrointestinal Hx Gastrointestinal Disorders: No Musculoskeletal Hx Musculoskeletal Disorders: No Endocrine Hx Endocrine Disorders: No HEENT HX ENT Disorders: No Cancer Hx Cancer: No Psychosocial Hx Psychiatric Problems: Yes Behavioral Health Disorders: Anxiety, Depression Integumentary HX Skin/Integumentary Disorder: No Blood Transfusions Hx Blood Disorders: No Physical Exam Vital Signs VS - Last 72 Hours, by Label 10/20/16 10/20/16 19:03 19:44 Temp 98.2 98.2 Pulse 77 77 Resp 18 18 B/P (MAP) 150/105 Pulse Ox 98 98 Capillary Refill : Less Than 3 Seconds General Appearance: WD/WN, moderate distress, obese Respiratory: no respiratory distress Cardiovascular: regular rate, rhythm Gastrointestinal: other (obese) Rectal: deferred Neurologic/Psychiatric: no motor/sensory deficits, alert, oriented x 3 Skin: warm/dry Progress/Results/Core Measures Results/Orders Vital Signs/I&O Vital Sign - Last 12Hours 10/20/16 10/20/16 19:03 19:44 Temp 98.2 98.2 Pulse 77 77 Resp 18 18 B/P (MAP) 150/105 Pulse Ox 98 98 Blood Pressure Mean: 120 Departure Impression Impression: Primary Impression: Anal fissure Disposition: 01 HOME, SELF-CARE Condition: Stable Departure-Patient Inst. Decision time for Depature: 19:36 Referrals: EVERARDO ACOSTA FLOYD R MD (PCP/Family) Primary Care Physician Patient Instructions: Anal Fissure (DC) Scripts Lidocaine HCl (Lidocaine) 35 Gm Oint 35 GM TP Q6H Y for rectal pain, #1 TUBE 0 Refills Prov: MANUEL DUFFY DO 10/21/16 Hydrocodone/Acetaminophen (Hydrocodon-Acetaminophn 10-325) 1 Each Tablet 1 EACH PO Q6H for Pain, #24 TAB 0 Refills Prov: MANUEL DUFFY DO 10/20/16 MANUEL DUFFY DO Oct 20, 2016 19:37
[2016-10-20] MEDS ORDERED: HYDR-3820 PO (19:41)
[2016-10-20 19:44] VITALS: BP 148/98
[2016-10-21] MEDS ORDERED: LD5O35 TP (04:16)
== END 2016-10-20 19:44 | disposition home or self-care (01) ==
LOC: EDUNIT# 18:39 → ER 18:40
DX: K60.2 Anal fissure, unspecified (principal); F17.210 Nicotine dependence, cigarettes, uncomplicated
CPT/HCPCS: 99282

== ENCOUNTER → 2016-10-24 | Day surgery (SDC) | payer BC ==
[~2016-10-24] VITALS: Ht 170.2 cm; Wt 129.3 kg
[~2016-10-24] MED LIST changes: +HC A30CR4 RC; +HYDR-3820 PO; +LD5O35 TP; +NS IV 1000 ML 1,000 ML IV STA; +NS IV 1000 ML 1,000 ML ONE; +[UNRECOGNIZED DRUG - CODE]; +fentaNYL INJECTION 100 MCG/2 ML AMP ONE; +proPOfol 200 MG/20 ML (DIPRIVAN) VIAL IV ONE
[2016-10-24 11:45] VITALS: BP 129/77
--- NOTE | 2016-10-24 12:32 | Progress Note-Pre Operative ---
Pre-Operative Progress Note H&P Reviewed The H&P was reviewed, patient examined and no changes noted. Date Seen by Provider: Oct 24, 2016 Time Seen by Provider: 12:32 Date H&P Reviewed: Oct 24, 2016 Time H&P Reviewed: 12:32 Pre-Operative Diagnosis: anal fissure EVERARDO HANNA DO Oct 24, 2016 12:32 pm
--- NOTE | 2016-10-24 13:11 | Discharge Inst-Simple/Standard ---
Discharge Inst-Standard Patient Instructions/Follow Up Plan of Care/Instructions/FU: Follow up in two weeks with Dr. Acosta Continue to use Diatizem cream as directed and the analpram as directed. Keep stool soft with colace. Increase fluid intake. Activity as Tolerated: Yes Discharge Diet: No Restrictions DOMINGO SCHULTZ APRN Oct 24, 2016 13:11
[2016-10-24 13:15] VITALS: BP 130/80
--- NOTE | 2016-10-24 13:18 | Progress Note-Post Operative ---
Post-Operative Progess Note Surgeon (s)/Bods Developer (s) Surgeon EVERARDO HANNA DO Bods Developer: na Pre-Operative Diagnosis anal fissure Post-Operative Diagnosis posterior anal fissure, questionable proctitis Procedure & Operative Findings Date of Procedure 10/24/16 Procedure Performed/Findings flexible sigmoidoscopy with cold rectal biopsies Anesthesia Type per diesel power shovel operator Estimated Blood Loss Estimated blood loss (mL): none Specimens/Packing Specimens Removed rectal biopsies EVERARDO HANNA DO Oct 24, 2016 13:18
[2016-10-24 13:35] VITALS: BP 114/77
[2016-10-24 13:51] VITALS: BP 114/77
--- NOTE | 2016-10-24 14:24 | OPERATIVE REPORT ---
DATE OF SERVICE: 10/24/2016 PREOPERATIVE DIAGNOSIS: Anal fissure. POSTOPERATIVE DIAGNOSES: Anal fissure, questionable proctitis. PROCEDURE: Flexible sigmoidoscopy with colorectal biopsies. SURGEON: Everardo Acosta DO ANESTHESIA: Per BOBJ DEVELOPER. ESTIMATED BLOOD LOSS: None. COMPLICATIONS: None. INDICATIONS: The patient is a 36-year-old female who has had rectal pain. She appears to have anal fissure on exam in the office. She was recommended to have a sigmoidoscopy performed. She understands risks and benefits and wished to proceed with procedure. Consent was signed in the chart. PROCEDURE IN DETAIL: The patient was taken to the endoscopy suite, placed in left lateral recumbent position. Timeout was performed. First digital rectal exam was performed. There appeared to be a small anal fissure posteriorly. Some slight hemorrhoidal disease. There were no other palpable polyps, masses or ulcerations. There was significant rectal tone. Scope was inserted in the rectum and advanced through the rectum and into the sigmoid colon to the descending colon. There were no polyps, masses or ulcerations within the sigmoid colon. Prep was adequate. Scope was then slowly retracted back until in the rectum, noting no other pathology. Scope was also retroflexed within the rectum, noting some slight erythematous changes circumferentially over the lower portion of the rectum. Biopsies were obtained. There are no polyps, masses or ulcerations. Scope was returned to its normal position slowly withdrawn, noting no other pathology. The patient tolerated procedure well without any complications. She was taken to the recovery room in stable condition. RECOMMENDATIONS: The patient will be started on some Analpram and she will continue on a diltiazem cream. The patient instructed to continue with high fiber diet and increased water intake. She will follow up in the office outpatient. If she has any problems, she should return to clinic before scheduled appointment. Job ID: [id number] DocumentID: [id number] Dictated Date: 10/24/2016 13:24:20 Belt Maker Helper Date: 10/24/2016 14:23:55 Dictated By: EVERARDO ACOSTA DO
== END | disposition home or self-care (01) ==
LOC: ENDO 11:22
PROVIDERS: ATTEND Surgery
DX: K60.2 Anal fissure, unspecified (principal); K62.89 Other specified diseases of anus and rectum; J45.909 Unspecified asthma, uncomplicated; F17.210 Nicotine dependence, cigarettes, uncomplicated; F32.9 Major depressive disorder, single episode, unspecified; F41.9 Anxiety disorder, unspecified; E66.01 Morbid (severe) obesity due to excess calories; Z68.41 Body mass index [BMI] 40.0-44.9, adult; Z79.899 Other long term (current) drug therapy
CPT/HCPCS: 88305

== ENCOUNTER 2017-02-24 17:14 | Emergency (ER) | payer BC ==
[~2017-02-24] VITALS: Ht 170.2 cm; Wt 127.0 kg
[~2017-02-24 17:14] MED LIST changes: -NS IV 1000 ML 1,000 ML IV STA; -NS IV 1000 ML 1,000 ML ONE; -fentaNYL INJECTION 100 MCG/2 ML AMP ONE; -proPOfol 200 MG/20 ML (DIPRIVAN) VIAL IV ONE
[2017-02-24] MEDS ORDERED: HYDROcodone/APAP 7.5 MG/325 MG (LORTAB, LORCET PLUS) TABLET PO STA (19:56)
[2017-02-24] MEDS ORDERED: metroNIDAZOLE 500 MG (FLAGYL) TAB PO STA (19:56)
[2017-02-24] MEDS ORDERED: CIPROFLOXACIN 500 MG (CIPRO) TABLET PO STA (19:56)
--- NOTE | 2017-02-24 19:59 | ED GI ---
General Chief Complaint: Rect Problems Stated Complaint: FISSURE Nursing Triage Note: pt states she has an anal fissure and had a BM this afternoon, has since had increasing pain. Sepsis Screen: No Definite Risk Source of Information: Patient Exam Limitations: No Limitations History of Present Illness Time Seen By Provider: 19:40 Initial Comments Here with complaint of anal fissure after having a hard BM this afternoon. She states that she gets these about once a year. She does have history of this and has had Botox injections.. She follows up with their doctor in [place] and with Dr. Hanna for this. She is on stool softeners currently. She has tried her therapy at home and that has not helped with the pain tonight. Timing/Duration: 4-6 Hours Severity/Quality: Moderate Location: Other (rectal left sided) Radiation: No Radiation Modifying Factors: Worsens With Defecating Associated Symptoms: No Fever/Chills, No Nausea/Vomiting, No Shortness of Air, No Weakness Allergies and Home Medications Allergies Coded Allergies: No Known Drug Allergies (Unverified , 05/26/13) Home Medications Citalopram Hydrobromide 40 Mg Tablet, #30 (Reported) Diltiazem HCl 10 Gm Powder, #30 (Reported) Hydrocodone/Acetaminophen 1 Each Tablet, 1 EACH PO Q6H, #24 Ref 0 Prescribed by: MANUEL DUFFY on 10/20/161940 Hydrocortisone/Pramoxine 30 Gm Cream.appl, 30 GM RC BID PRN for 30 Days, #1 Apple to rectal area twice a day. Prescribed by: DOMINGO MASON on 10/24/16 1309 Review of Systems Constitutional: see HPI, No chills, No fever Respiratory: No Symptoms Reported Cardiovascular: No Symptoms Reported Gastrointestinal: See HPI, Other (rectal pain from Wise left-sided) Genitourinary: No Symptoms Reported Psychiatric/Neurological: No Symptoms Reported Past Zxhoeln-Qecifz-Eubayt Hx Patient Social History Alcohol Use: Denies Use Number of Drinks Today: AA Alcohol Beverage of Choice: Beer Recreational Drug Use: No Smoking Status: Former Smoker Type Used: Cigarettes 2nd Hand Smoke Exposure: No Recent Foreign Travel: No Contact w/Someone Who Travel: No Recent Infectious Disease Expo: No Recent Hopitalizations: No Physical Abuse: No Sexual Abuse: No Immunizations Up To Date Tetanus Booster (TDap): Less than 5yrs Seasonal Allergies Seasonal Allergies: Yes Surgeries History of Surgeries: Yes (POLYPS REMOVED, PARTIAL HYST/OVARIES INTACT, ) Surgeries: Hysterectomy Respiratory History of Respiratory Disorde: Yes (ASTHMA) Respiratory Disorders: Asthma Cardiovascular History of Cardiac Disorders: No Neurological History of Neurological Disord: No Reproductive System 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 Genitourinary Genitourinary Disorders: Kidney Stones Gastrointestinal History of Gastrointestinal Di: No Musculoskeletal History of Musculoskeletal Dis: No Endocrine History of Endocrine Disorders: No Cancer History of Cancer: No Psychosocial History of Psychiatric Problem: Yes Behavioral Health Disorders: Anxiety, Depression Suicide Risk Score: 0 Integumentary History of Skin or Integumenta: No Blood Transfusions History of Blood Disorders: No Reviewed Nursing Assessment Reviewed/Agree w Nursing PMH: Yes Family Medical History Significant Family History: No Pertinent Family Hx Physical Exam Vital Signs VS - Last 72 Hours, by Label 02/24/17 18:24 Temp 99.4 Pulse 93 Resp 16 B/P (MAP) 139/98 Pulse Ox 95 O2 Delivery Room Air Capillary Refill : Less Than 3 Seconds General Appearance: WD/WN, no apparent distress Respiratory: lungs clear, normal breath sounds Cardiovascular: regular rate, rhythm, no murmur Gastrointestinal: non tender, soft Rectal: other (external exam shows fissure right at the verge and the left sided and the area between the perineum and the left lateral aspect. Nonbleeding. Does have some tenderness.) Neurologic/Psychiatric: alert, oriented x 3 Progress/Results/Core Measures Results/Orders My Orders Orders - PAYAM LAMBERT MD Hydrocodone/Apap 7.5/325 Tab (Lortab 7. (02/24/17 19:56) Metronidazole Tablet (Flagyl Tablet) (02/24/17 19:56) Ciprofloxacin Tablet (Cipro Tablet) (02/24/17 19:56) Rx-Hydrocodone/Apap 5-325 Mg (Rx-Vicodin (02/24/17 20:00) Medications Given in ED Current Medications Medications Dose Ordered Sig/Iveth Route Start Time Stop Time Status Last Admin Dose Admin Acetaminophen/ Hydrocodone Bitart 1 ea Q4HR PRN PO 02/24/17 20:00 02/24/17 20:12 1 EA Vital Signs/I&O Vital Sign - Last 12Hours 02/24/17 18:24 Temp 99.4 Pulse 93 Resp 16 B/P (MAP) 139/98 Pulse Ox 95 O2 Delivery Room Air Blood Pressure Mean: 112 Progress Note : Progress Note Seen and evaluated. External rectal exam done. Hydrocodone 7.5 one tab by mouth given. Initiated Cipro and Flagyl. Discharged home with return precautions. Patient verbalize understanding instructions and agreement with plan. Go pack of hydrocodone 5/325 given. Departure Impression Impression: Primary Impression: Rectal fissure Disposition: HOME, SELF-CARE Condition: Stable Departure-Patient Inst. Decision time for Depature: 20:21 Referrals: EVERARDO HANNA FLOYD R MD (PCP/Family) Primary Care Physician Patient Instructions: Anal Fissure (DC) Add. Discharge Instructions: All discharge instructions reviewed with patient and/or family. Voiced understanding. Continue nwog-hdl-itvvygr agents to the area of concern as previously instructed. You should continue sitz baths. It is very important that he keep stools soft. Increase MiraLAX to one capful twice daily and adjust as needed to keep stools soft. Take pain medication as prescribed but try to minimize that she used to decrease the constipation that is associated with it. Follow- up with Dr. Hanna or the surgeon in [place] this week for recheck and further evaluation. Return for worsening, fever, vomiting, weakness, breathing problems or other concerns as needed. Scripts Metronidazole (Metronidazole) 500 Mg Tablet 500 MG PO BID, #14 TAB 0 Refills Prov: PAYAM LAMBERT MD 02/24/17 Hydrocodone/Acetaminophen (Hydrocodon -Acetaminophen 5-325) 1 Each Tablet 1-2 EACH PO Q6H Y for PAIN-MODERATE, #15 TAB 0 Refills Prov: PAYAM LAMBERT MD 02/24/17 Ciprofloxacin HCl (Ciprofloxacin HCl) 500 Mg Tablet 500 MG PO BID, #14 TAB Prov: PAYAM LAMBERT MD 02/24/17 PAYAM LAMBERT MD Feb 24, 2017 19:59
[2017-02-24] MEDS ORDERED: RX-HYDROCODONE/APAP 5/325 MG #4 TAB PK PO PRN (20:00)
[2017-02-24] MEDS ORDERED: CIPR500T4 PO (20:23)
[2017-02-24] MEDS ORDERED: HYDR-3812 PO (20:23)
[2017-02-24] MEDS ORDERED: METR500T21 PO (20:23)
[2017-02-24 20:28] VITALS: BP 135/95
== END 2017-02-24 20:27 | disposition home or self-care (01) ==
LOC: EDUNIT# 17:14 → ER 17:15
DX: K60.2 Anal fissure, unspecified (principal); F41.9 Anxiety disorder, unspecified; F32.9 Major depressive disorder, single episode, unspecified; J45.909 Unspecified asthma, uncomplicated; Z87.442 Personal history of urinary calculi; Z87.891 Personal history of nicotine dependence; Z86.010 Personal history of colon polyps; Z90.711 Acquired absence of uterus with remaining cervical stump
CPT/HCPCS: 99283

== ENCOUNTER 2019-04-02 03:49 | Emergency (ER) | payer BC, OTHER ==
[~2019-04-02] VITALS: Ht 170.2 cm; Wt 130.0 kg
[~2019-04-02 03:49] MED LIST changes: +ACHD5005 PO; +AZIT250T12 PO; -AZIT250T5 PO; +CIPR500T4 PO; +METR-145; +METR-145 PO; -METR500T21
[2019-04-02] MEDS ORDERED: LACTATED RINGERS 1,000 ML IV ONE ×2 (04:10→05:10)
[2019-04-02] MEDS ORDERED: ONDANSETRON 4 MG/2 ML (SDV) Z0FRAN IVP ONE (04:15)
--- NOTE | 2019-04-02 04:23 | ED Abdominal Pain ---
General Chief Complaint: Abdominal/GI Problems Stated Complaint: LEFT SIDE OF BACK PAIN,N/V Source of Information: Patient History of Present Illness Date Seen by Provider: Apr 02, 2019 Time Seen by Provider: 04:08 Initial Comments PT ARRIVES VIA POV FROM HOME C/O LLQ PAIN RADIATING TO LEFT FLANK SINCE 0245 THIS AM NOTHING WORSENS OR IMPROVES PAIN, BUT HAS NOT TAKEN ANYTHING FOR THE PAIN C/O NAUSEA AND HAS VOMITED X 2, PLUS DRY HEAVES NO DIARRHEA OR CONSTIPATION, NORMAL BM IN LAST 24 HOURS NO FEVER C/O URINARY URGENCY, URINE WAS DARK HAS HISTORY OF KIDNEY STONES PT HAS HAD HYSTERECTOMY/OVARIES INTACT Allergies and Home Medications Allergies Coded Allergies: No Known Drug Allergies (Unverified , 05/26/13) Home Medications Ciprofloxacin HCl 500 Mg Tablet, 500 MG PO BID Prescribed by: PAYAM LAMBERT on 02/24/172022 Hydrocodone Bit/Acetaminophen 1 Each Tablet, 1-2 EACH PO Q6H PRN for PAIN- MODERATE Prescribed by: PAYAM LAMBERT on 02/24/172022 Hydrocodone/Acetaminophen 1 Each Tablet, 1 EACH PO Q6H Prescribed by: MANUEL DUFFY on 10/20/161940 Hydrocodone/Ibuprofen 1 Each Tablet, 1-2 EACH PO Q4H PRN for PAIN-MODERATE Prescribed by: LEYDA AYON on 04/02/19516 Hydrocortisone/Pramoxine 30 Gm Cream.appl, 30 GM RC BID PRN Apple to rectal area twice a day. Prescribed by: DOMINGO CLARK NWAGDarius on 10/24/16 1309 Metronidazole 500 Mg Tablet, 500 MG PO BID Prescribed by: PAYAM LAMBERT on 02/24/172022 Nitrofurantoin Monohyd/M-Cryst 100 Mg Capsule, 100 MG PO BID Prescribed by: LEYDA AYON on 04/02/19516 Ondansetron 8 Mg Tab.rapdis, 8 MG PO Q6H Prescribed by: LEYDA AYON on 04/02/19516 Tamsulosin HCl 0.4 Mg Cap, 0.4 MG PO DAILY Prescribed by: LEYDA AYON on 04/02/19516 Patient Home Medication List Home Medication List Reviewed: Yes Review of Systems Review of Systems Constitutional: no symptoms reported Respiratory: No Symptoms Reported Cardiovascular: No Symptoms Reported Gastrointestinal: See HPI, Abdominal Pain; Denies Constipated, Denies Diarrhea; Nausea, Vomiting Genitourinary: See HPI, Flank Pain, Urgency Musculoskeletal: see HPI, back pain Skin: no symptoms reported Psychiatric/Neurological: No Symptoms Reported Endocrine: No Symptoms Reported Hematologic/Lymphatic: No Symptoms Reported Past Xcqrsvn-Wsduyf-Gttzrs Hx Patient Social History Alcohol Use: Occasionally Uses Alcohol Beverage of Choice: Beer Recreational Drug Use: Yes (THC) Smoking Status: Current Everyday Smoker (1 PPD) Type Used: Cigarettes (1 PPD) 2nd Hand Smoke Exposure: No Recent Hopitalizations: No Immunizations Up To Date Tetanus Booster (TDap): Less than 5yrs Seasonal Allergies Seasonal Allergies: Yes Past Medical History Surgeries: Yes (COLONSCOPIES/POLYPS REMOVED, PARTIAL HYST/OVARIES INTACT, ) Hysterectomy Respiratory: Yes (ASTHMA) Asthma Cardiac: No Neurological: No Reproductive Disorders: Yes Female Reproductive Disorders: Menstrual 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 0.0oz. 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, no motor/sensory deficits, alert, normal mood/affect, oriented x 3 Skin: normal color, warm/dry Progress/Results/Core Measures Results/Orders Lab Results Laboratory Tests Test 04/02/19 04:15 04/02/19 04:22 Range/Units Urine Color YELLOW Urine Clarity CLOUDY Urine pH 5.5 5-9 Urine Specific [place] >=1.030 1.016-1.022 Urine Protein 1+ H NEGATIVE Urine Glucose (UA) NEGATIVE NEGATIVE Urine Ketones NEGATIVE NEGATIVE Urine Nitrite NEGATIVE NEGATIVE Urine Bilirubin NEGATIVE NEGATIVE Urine Urobilinogen 0.2 < = 1.0 MG/DL Urine Leukocyte Esterase NEGATIVE NEGATIVE Urine RBC (Auto) 3+ H NEGATIVE Urine RBC >100 H /HPF Urine WBC 2-5 /HPF Urine Squamous Epithelial Cells 5-10 /HPF Urine Crystals NONE /LPF Urine Bacteria TRACE /HPF Urine Casts NONE /LPF Urine Mucus NEGATIVE /LPF Urine Culture Indicated YES White Blood Count 13.1 H 4.3-11.0 10^3/uL Red Blood Count 5.40 4.35-5.85 10^6/uL Hemoglobin 15.5 11.5-16.0 G/DL Hematocrit 45 35-52 % Mean Corpuscular Volume 84 80-99 FL Mean Corpuscular Hemoglobin 29 25-34 PG Mean Corpuscular Hemoglobin Concent 34 32-36 G/DL Red Cell Distribution Width 13.7 10.0-14.5 % Platelet Count 335 130-400 10^3/uL Mean Platelet Volume 10.6 H 7.4-10.4 FL Neutrophils (%) (Auto) 56 42-75 % Lymphocytes (%) (Auto) 27 12-44 % Monocytes (%) (Auto) 10 0-12 % Eosinophils (%) (Auto) 6 0-10 % Basophils (%) (Auto) 1 0-10 % Neutrophils # (Auto) 7.3 1.8-7.8 X 10^3 Lymphocytes # (Auto) 3.5 1.0-4.0 X 10^3 Monocytes # (Auto) 1.3 H 0.0-1.0 X 10^3 Eosinophils # (Auto) 0.8 H 0.0-0.3 10^3/uL Basophils # (Auto) 0.1 0.0-0.1 10^3/uL Sodium Level 142 135-145 MMOL/L Potassium Level 3.7 3.6-5.0 MMOL/L Chloride Level 107 98-107 MMOL/L Carbon Dioxide Level 23 21-32 MMOL/L Anion Gap 12 5-14 MMOL/L Blood Urea Nitrogen 10 7-18 MG/DL Creatinine 1.01 0.60-1.30 MG/DL Estimat Glomerular Filtration Rate 60 BUN/Creatinine Ratio 10 Glucose Level 148 H 70-105 MG/DL Calcium Level 9.5 8.5-10.1 MG/DL Corrected Calcium 9.2 8.5-10.1 MG/DL Total Bilirubin 0.4 0.1-1.0 MG/DL Aspartate Amino Transf (AST/SGOT) 19 5-34 U/L Alanine Aminotransferase (ALT/SGPT) 30 0-55 U/L Alkaline Phosphatase 75 40-136 U/L Total Protein 7.5 6.4-8.2 GM/DL Albumin 4.4 3.2-4.5 GM/DL Amylase Level 44 25-125 U/L Lipase 23 8-78 U/L My Orders Orders - LEYDA AYON DO Ed Iv/Invasive Line Start (04/02/19 04:10) Ct Abd/Pelvis Wo(Kidney Stone) (04/02/19 04:10) Acute Abd Series (04/02/19 04:10) Amylase (04/02/19 04:10) Cbc With Automated Diff (04/02/19 04:10) Comprehensive Metabolic Panel (04/02/19 04:10) Lipase (04/02/19 04:10) Ua Culture If Indicated (04/02/19 04:10) Ed Iv/Invasive Line Start (04/02/19 04:10) Lactated Ringers (Lr 1000 Ml Iv Solution (04/02/19 04:10) Ondansetron Injection (Zofran Injectio (04/02/19 04:15) Ketorolac Injection (Toradol Injection) (04/02/19 04:30) Ketorolac Injection (Toradol Injection) (04/02/19 04:27) Urine Culture (04/02/19 04:15) Morphine Injection (Morphine Injection (04/02/19 05:10) Promethazine Injection (Phenergan Injec (04/02/19 05:15) Tamsulosin Capsule (Flomax Capsule) (04/02/19 05:15) Diphenhydramine Injection (Benadryl Inje (04/02/19 05:15) Ed Iv/Invasive Line Start (04/02/19 05:10) Lactated Ringers (Lr 1000 Ml Iv Solution (04/02/19 05:10) Morphine Injection (Morphine Injection (04/02/19 05:48) Promethazine Injection (Phenergan Injec (04/02/19 06:00) Medications Given in ED Current Medications Medications Dose Ordered Sig/Iveth Route Start Time Stop Time Status Last Admin Dose Admin Diphenhydramine HCl 25 mg ONCE ONCE IVP 04/02/19 05:15 04/02/19 05:16 [place] 04/02/19 05:23 25 MG Ketorolac Tromethamine 30 mg ONCE ONCE IVP 04/02/19 04:30 04/02/19 04:31 DC 04/02/19 04:31 30 MG Lactated Ringer's 1,000 ml @ 0 mls/hr Q0M ONCE IV 04/02/19 04:10 04/02/19 04:13 DC 04/02/19 04:22 999 MLS/HR Lactated Ringer's 1,000 ml @ 0 mls/hr Q0M ONCE IV 04/02/19 05:10 04/02/19 05:12 DC 04/02/19 05:23 999 MLS/HR Ondansetron HCl 4 mg ONCE ONCE IVP 04/02/19 04:15 04/02/19 04:16 [place] 04/02/19 04:22 4 MG Promethazine HCl 25 mg ONCE ONCE IVP 04/02/19 05:15 04/02/19 05:16 [place] 04/02/19 05:23 25 MG Promethazine HCl 25 mg ONCE ONCE IVP 04/02/19 06:00 04/02/19 06:05 [place] 04/02/19 05:59 25 MG Vital Signs/I&O 04/02/19 04:08 Temp 36.8 Pulse 69 Resp 20 B/P (MAP) 176/110 (132) O2 Delivery Room Air Progress Progress Note : Progress Note GIVEN ZOFRAN AND TORADOL WITHOUT RELIEF GIVEN MORPHINE, BENADRYL AND PHENERGAN--SYMPTOMS IMPROVED, PT ABLE TO TOLERATE WATER, AND ORAL MEDICATION Diagnostic Imaging Comments ABDOMINAL XRAYS--MULTIPLE CALCIFICATIONS IN PELVIS, CALCIFICATION IN LEFT KIDNEY, PENDING RADIOLOGIST REVIEW CT ABDOMEN/PELVIS-- 4 MM CALCULUS IN LEFT KIDNEY, 3.3 MM CALCULUS IN LEFT PROXIMAL URETER WITH MILD HYDRONEPHROSIS. PER [facility] VIA FAX AT 0592 Reviewed: Reviewed by Me Departure Impression Primary Impression: Left ureteral calculus Disposition: HOME, SELF-CARE Condition: Improved Departure-Patient Inst. Referrals: JUANCARLOS JANG MD (PCP/Family) Primary Care Physician GREG HOLDEN MD Patient Instructions: How to Strain Your Urine, Kidney Stones (DC) Add. Discharge Instructions: LOTS OF CLEAR LIQUIDS STRAIN ALL URINE--RETURN ANY STONES TO UROLOGIST'S OFFICE FOLLOW UP WITH DR. HOLDEN THIS WEEK FOR FURTHER CARE All discharge instructions reviewed with patient and/or family. Voiced understanding. Scripts Promethazine HCl (Phenergan) 25 Mg Supp.rect 25 MG RC Q4H for Nausea/Vomiting, #10 SUPP.RECT Prov: LEYDA AYON DO 04/02/19 Hydrocodone/Ibuprofen (Hydrocodone-Ibuprofen 7.5-200) 1 Each Tablet 1-2 EACH PO Q4H PRN for PAIN-MODERATE for 3 Days, #20 TAB Prov: LEYDA AYON DO 04/02/19 Ondansetron (Ondansetron Odt) 8 Mg Tab.rapdis 8 MG PO Q6H for Nausea/Vomiting, #10 TAB Prov: LEYDA AYON DO 04/02/19 Tamsulosin HCl (Flomax) 0.4 Mg Cap 0.4 MG PO DAILY, #10 CAP Prov: LEYDA AYON DO 04/02/19 Nitrofurantoin Monohyd/M-Cryst (Macrobid 100 mg Capsule) 100 Mg Capsule 100 MG PO BID, #20 CAP Prov: LEYDA AYON DO 04/02/19 LEYDA AYON DO Apr 02, 2019 04:23 POS
[2019-04-02 04:27] LABS: BILIRUBIN,URINE NEGATIVE (NEGATIVE); CLARITY,URINE CLOUDY; COLOR,URINE YELLOW; GLUCOSE, URINE (UA) NEGATIVE (NEGATIVE); KETONES,URINE NEGATIVE (NEGATIVE); LEUKOCYTE ESTERASE ,URINE NEGATIVE (NEGATIVE); NITRITE,URINE NEGATIVE (NEGATIVE); PH,URINE 5.5 (5-9); PROTEIN,URINE 1+ (NEGATIVE)
[2019-04-02] MEDS ORDERED: KETOROLAC 30 MG/ML VIAL ONE (04:27)
[2019-04-02] MEDS ORDERED: KETOROLAC 30 MG/ML VIAL IVP ONE (04:30)
[2019-04-02 04:36] LABS: BACTERIA,URINE TRACE /HPF; RBC,URINE >100 /HPF
[2019-04-02 05:08] LABS: BASOPHILS # (AUTO) 0.1 10^3/uL (0.0-0.1); BASOPHILS % (AUTO) 1 % (0-10); EOSINOPHILS # (AUTO) 0.8 10^3/uL (0.0-0.3); EOSINOPHILS % (AUTO) 6 % (0-10); HEMATOCRIT 45 % (35-52); HEMOGLOBIN 15.5 G/DL (11.5-16.0); LYMPHOCYTES # (AUTO) 3.5 X 10^3 (1.0-4.0); LYMPHOCYTES % (AUTO) 27 % (12-44); MEAN CORPUSCULAR HEMOGLOBIN 29 PG (25-34); MEAN CORPUSCULAR HGB CONC 34 G/DL (32-36); MEAN CORPUSCULAR VOLUME 84 FL (80-99); MEAN PLATELET VOLUME 10.6 FL (7.4-10.4); MONOCYTES # (AUTO) 1.3 X 10^3 (0.0-1.0); MONOCYTES % (AUTO) 10 % (0-12); NEUTROPHILS # (AUTO) 7.3 X 10^3 (1.8-7.8); NEUTROPHILS % (AUTO) 56 % (42-75); PLATELET COUNT 335 10^3/uL (130-400); RED CELL DISTRIBUTION WIDTH 13.7 % (10.0-14.5); WHITE BLOOD COUNT 13.1 10^3/uL (4.3-11.0)
[2019-04-02] MEDS ORDERED: morphine INJ 10 MG/ML 1ML (SYR OR VIAL) IVP STA ×2 (05:10→05:48)
[2019-04-02] MEDS ORDERED: PROMETHAZINE INJ 25 MG/ML (PHENERGAN) AMP IVP ONE ×2 (05:15→06:00)
[2019-04-02] MEDS ORDERED: TAMSULOSIN 0.4 MG (FLOMAX) CAP PO SCH (05:15)
[2019-04-02] MEDS ORDERED: diphenhydrAMINE 50 MG/ML INJ (BENADRYL) IVP ONE (05:15)
[2019-04-02] MEDS ORDERED: HYDR-87 PO (05:17)
[2019-04-02] MEDS ORDERED: NITR-65 PO (05:17)
[2019-04-02] MEDS ORDERED: ONDA8TAB13 PO (05:17)
[2019-04-02] MEDS ORDERED: TAMS0.4C98 PO (05:17)
[2019-04-02 05:29] LABS: ALBUMIN 4.4 GM/DL (3.2-4.5); BILIRUBIN,TOTAL 0.4 MG/DL (0.1-1.0); CALCIUM 9.5 MG/DL (8.5-10.1); CREATININE SERUM 1.01 MG/DL (0.60-1.30); POTASSIUM 3.7 MMOL/L (3.6-5.0); TOTAL PROTEIN 7.5 GM/DL (6.4-8.2)
--- NOTE | 2019-04-02 06:29 | Diagnostic Imaging Report ---
Clinical indication: Patient complains of left lower quadrant pain that radiates to the left flank to start approximately 0245 hours this morning. Patient has nausea and vomiting x2. EXAMS: X-ray of the chest PA view and x-ray of the abdomen supine and upright views. COMPARISONS: X-ray of the chest and abdomen dated 08/23/2016. FINDINGS: LUNGS/ PLEURA: Lungs are clear. There is no pneumothorax. There is no pleural effusion. MEDIASTINUM: Unremarkable. PULMONARY VASCULATURE: Unremarkable. HEART: Unremarkable. BONES/ EXTRATHORACIC SOFT TISSUE: There are degenerative spurs involving the spine. ABDOMEN AND PELVIS: Unremarkable x-ray of the abdomen with nonobstructed bowel gas pattern. There is no evidence of abdominal free air. Stable 4 mm rounded calcification overlying the left mid abdominal region which correlates to stone overlying the lower pole of the left kidney. There is no other definite urinary tract stone seen in the interim. Multiple phleboliths are seen in the pelvis. IMPRESSION: 1: There is no radiographic evidence of acute cardiopulmonary process. 2: Stable left nephrolithiasis. If there is continued concern for stone in the ureters or bladder, CT scan would better evaluate. 3: Nonobstructive bowel gas pattern. Dictated by: Dictated on workstation # [id number]
[2019-04-02] MEDS ORDERED: PROM25SU43 RC (06:33)
--- NOTE | 2019-04-02 06:43 | Diagnostic Imaging Report ---
Clinical indication: Patient complains of left lower quadrant pain that radiates to left flank started approximately 0245 hours this morning. Patient is nauseated and vomiting x2. Exam: CT exam of the abdomen and pelvis is performed without IV or oral contrast using stone protocol. Coronal and sagittal reformatted images were created. Auto Exposure Controls were utilized during the CT exam to meet ALARA standards for radiation dose reduction. Comparisons: CT scan of the abdomen and pelvis performed without IV contrast dated 08/23/2016. Findings: Visualized lung bases: Unremarkable. Liver: Unremarkable as visualized. Gallbladder: Unremarkable. Pancreas: Unremarkable as visualized. Spleen: Unremarkable as visualized. Adrenal glands: Unremarkable. Kidneys/ ureters: Stable 4 mm nonobstructive stone involving the inferior pole of the left kidney. There is interval development of a 3 mm stone within the proximal left ureter with only minimal prominence of the left renal pelvis and no hydronephrosis. There is subtle fat stranding adjacent to the ureter in the region of the stone. The remainder of both kidneys unremarkable with no hydronephrosis or other stones or mass. Aorta: Unremarkable as visualized. Intraabdominal/ retroperitoneal contents: Unremarkable. Intestines: Unremarkable as visualized. Appendix: Unremarkable. Bladder: Bladder is decompressed and grossly unremarkable as visualized. Pelvic organs: Unremarkable as visualized. Extra abdominal/ pelvis regions: Unremarkable. Abdominal wall: Unremarkable. Bones: There is facet arthropathy involving the lower lumbar spine. Small degenerative spurs involving the lumbar spine. Impression: 1: There is a 3 mm stone within the proximal left ureter with no significant hydronephrosis. 2: Stable 4 mm stone involving the inferior pole of the left kidney. 3: The remainder of this exam shows no other significant abnormality. I agree with [facility] report. Dictated by: Dictated on workstation # [id number]
[2019-04-02] MEDS ORDERED: HYDROcodone/APAP 10 MG/325 MG (LORTAB) TAB PO ONE (06:45)
--- NOTE | 2019-04-02 07:14 | NUR ---
CON'T TO LOOK FOR SOMEONE TO COME GET HER
[2019-04-02 07:26] VITALS: BP 175/100
== END 2019-04-02 07:27 | disposition home or self-care (01) ==
LOC: EDUNIT# 03:49 → ER 03:52
DX: N13.2 Hydronephrosis with renal and ureteral calculous obstruction (principal); J45.909 Unspecified asthma, uncomplicated; F41.9 Anxiety disorder, unspecified; F32.9 Major depressive disorder, single episode, unspecified; F17.210 Nicotine dependence, cigarettes, uncomplicated; Z90.710 Acquired absence of both cervix and uterus
CPT/HCPCS: 36415; 74022; 74176; 80053; 81000; 82150; 83690; 84703; 85025; 87088

== ENCOUNTER 2020-02-17 05:49 | Outpatient (CLI) | payer OTHER ==
[~2020-02-17] VITALS: Ht 170 cm; Wt 127.0 kg
[~2020-02-17 05:49] MED LIST changes: +ACHYD1T PO; -HYDR-3820 PO; +HYDR-87 PO; +NITR-65 PO; +ONDA8TAB13 PO; +PROM25SU43 RC; +TMSL.4C PO
[2020-02-17] MEDS ORDERED: FLUT1BLS9 IH (15:59)
[2020-02-17] MEDS ORDERED: CETI10TA49 PO (15:59)
[2020-02-17] MEDS ORDERED: ESCI20TA PO (15:59)
== END 2020-02-17 16:03 | disposition home or self-care (01) ==
LOC: PREOP 05:49
PROVIDERS: ATTEND Surgery
DX: Z01.818 Encounter for other preprocedural examination (principal)

== ENCOUNTER 2020-02-24 11:57 | Day surgery (SDC) | payer OTHER ==
[~2020-02-24] VITALS: Ht 170.2 cm; Wt 128.2 kg
[~2020-02-24 11:57] MED LIST changes: +CETI10TA49 PO; +ESCI20TA PO; +FLUT1BLS9 IH
[2020-02-24 12:00] VITALS: BP 145/83
[2020-02-24] MEDS ORDERED: LACTATED RINGERS 1,000 ML IV ONE (12:00)
[2020-02-24] MEDS ORDERED: LACTATED RINGERS 1,000 ML IV STA (12:04)
--- NOTE | 2020-02-24 12:38 | Progress Note-Pre Operative ---
Pre-Operative Progress Note H&P Reviewed The H&P was reviewed, patient examined and no changes noted. Date Seen by Provider: Feb 24, 2020 Time Seen by Provider: 12:37 Date H&P Reviewed: Feb 24, 2020 Time H&P Reviewed: 12:37 Pre-Operative Diagnosis: blood in stool EVERARDO HANNA DO Feb 24, 2020 12:38
[2020-02-24 13:45] VITALS: BP 137/70
--- NOTE | 2020-02-24 13:48 | Anesthesia-General Post-Op ---
MAC Patient Condition Mental Status/LOC: Same as Preop Cardiovascular: Satisfactory Nausea/Vomiting: Absent Respiratory: Satisfactory Pain: Controlled Complications: Absent Post Op Complications Complications None Follow Up Care/Instructions Patient Instructions None needed. Anesthesiology Discharge Order Discharge Order Patient is doing well, no complaints, stable vital signs, no apparent adverse anesthesia problems. No complications reported per nursing. DONA VALDIVIA CRNA Feb 24, 2020 13:48
[2020-02-24 13:50] VITALS: BP 128/60
--- NOTE | 2020-02-24 13:51 | Progress Note-Post Operative ---
Post-Operative Progess Note Surgeon (s)/Internet Sales Representative (s) Surgeon EVERARDO HANNA DO Internet Sales Representative: na Pre-Operative Diagnosis blood in stool Post-Operative Diagnosis post anal fissure Procedure & Operative Findings Date of Procedure 02/24/20 Procedure Performed/Findings colonoscopy Anesthesia Type per etl informatica developer Estimated Blood Loss Estimated blood loss (mL): min Specimens/Packing Specimens Removed na EVERARDO HANNA DO Feb 24, 2020 13:51
[2020-02-24 13:55] VITALS: BP_SYST 118; BP_SYST 126; BP_DIAS 70; BP_DIAS 77
--- NOTE | 2020-02-24 14:00 | Discharge Inst-Simple/Standard ---
Discharge Inst-Standard Patient Instructions/Follow Up Plan of Care/Instructions/FU: 2 weeks Karla Activity as Tolerated: Yes Discharge Diet: Regular Diet Other Inst to Patient high fiber diet EVERARDO HANNA DO Feb 24, 2020 14:00
[2020-02-24 14:25] VITALS: BP 128/78
[2020-02-24 14:35] VITALS: BP 128/78
--- NOTE | 2020-02-24 21:56 | OPERATIVE REPORT ---
DATE OF SERVICE: 02/24/2020 PREOPERATIVE DIAGNOSIS: Blood in stool. POSTOPERATIVE DIAGNOSIS: Posterior anal fissure. PROCEDURE: Colonoscopy. SURGEON: Everardo Acosta DO ANESTHESIA: Per QUALITY CONTROL LAB TECHNICIAN. ESTIMATED BLOOD LOSS: None. COMPLICATIONS: None. INDICATIONS: The patient is a 40-year-old female with blood in stools. She understands risks and benefits of procedure and wished to proceed with procedure. Consent was signed in the chart. DESCRIPTION OF PROCEDURE: The patient was taken to endoscopy suite, placed in left lateral recumbent position. Timeout was performed. Digital rectal examination was performed. Posterior anal fissure. No active bleeding. Also some internal hemorrhoids. No palpable polyps, masses or ulcerations. Scope was then inserted into the rectum, advanced all the way to cecum with minimal difficulty. Prep was adequate. Scope was then slowly retracted back. There were no polyps, masses or ulcerations in the cecum, ascending, transverse, descending and sigmoid colon. Once in the rectum, scope was retroflexed noting no other pathology. Scope was returned to its normal position, slowly withdrawn until completely removed. The patient tolerated procedure well without any complications, taken to recovery room in stable condition. RECOMMENDATIONS: The patient recommended high fiber diet and keep stools soft. We will discuss in the office in two to three weeks options for further management. The patient needs repeat colonoscopy per routine screening guidelines. Job ID: [id number] DocumentID: [id number] Dictated Date: 02/24/2020 14:05:11 [employer] Lieutenant Date: 02/24/2020 21:55:11 Dictated By: EVERARDO ACOSTA DO
== END 2020-02-24 14:35 | disposition home or self-care (01) ==
LOC: ENDO 11:57
PROVIDERS: ATTEND Surgery
DX: K60.2 Anal fissure, unspecified (principal); F41.9 Anxiety disorder, unspecified; F32.9 Major depressive disorder, single episode, unspecified; J45.909 Unspecified asthma, uncomplicated; E66.01 Morbid (severe) obesity due to excess calories; Z68.41 Body mass index [BMI] 40.0-44.9, adult; Z79.51 Long term (current) use of inhaled steroids; Z79.899 Other long term (current) drug therapy; Z20.828 Contact with and (suspected) exposure to other viral communicable diseases; Z90.711 Acquired absence of uterus with remaining cervical stump; Z80.0 Family history of malignant neoplasm of digestive organs; Z83.3 Family history of diabetes mellitus
CPT/HCPCS: 45378; U0002; 87635

== ENCOUNTER 2022-09-19 17:16 | Emergency (ER) | payer OTHER ==
[~2022-09-19] VITALS: Ht 170 cm; Wt 115.6 kg
[~2022-09-19 17:16] MED LIST changes: -CIPR500T4 PO; +CIPR500T5 PO; -CITA40TA11; +CITA40TA13; +HYDR-4085 PO; -HYDR-87 PO; +MULT-1054 PO; -MULT-985 PO
[2022-09-19] MEDS ORDERED: NS IV 1000 ML 1,000 ML IV STA (17:32)
--- NOTE | 2022-09-19 17:36 | ED Abdominal Pain ---
General Chief Complaint: Abdominal/GI Problems Stated Complaint: ABD PAIN Source of Information: Patient Exam Limitations: No Limitations (PAUL HWANG) History of Present Illness Date Seen by Provider: September 19, 2022 Time Seen by Provider: 17:33 Initial Comments Patient is a 42-year-old female with a history of partial hysterectomy who presents ED with lower abdominal pain. Pain has been fairly constant since Sunday. Dull constant pain with intermittent sharp pain that radiates across her lower abdomen. She did have some pain in her left flank yesterday. Pain is located to right lower quadrant today. She states she went to the clinic on Sunday diagnosed with UTI was placed on Macrobid. She went to her primary care physician yesterday was given Toradol and Flomax concern for kidney stone. She denies of any obvious fever but states she felt feverish. No history of kidney stones. She reports decreased urine output without hematuria or pain. She denies cough, chest pain, headache, dizziness, sore throat. She states she has been drinking fluids. She did have episode of vomiting with diarrhea yesterday. No vomiting or diarrhea today. Denies any bloody stools (PAUL HWANG) Allergies and Home Medications Allergies Coded Allergies: No Known Drug Allergies (Unverified , 02/24/20) Patient Home Medication List Home Medication List Reviewed: Yes (PAUL HWANG) Cetirizine HCl (Zyrtec) 10 Mg Tablet, 10 MG PO BID, (Reported) Entered as Reported by: ROSE EDMONDS on 02/17/201558 Ciprofloxacin HCl (Cipro) 500 Mg Tablet, 500 MG PO BID Prescribed by: WENDIE GONZALEZ on 09/19/22 185 Escitalopram Oxalate (Lexapro) 20 Mg Tablet, 20 MG PO DAILY, (Reported) Entered as Reported by: ROSE EDMONDS on 02/17/20 155 Fluticasone Propion/Salmeterol (Wixela 250-50 Inhub) 1 Each Blst.w.dev, 1 EACH IH BID, (Reported) Entered as Reported by: ROSE EDMONDS on 02/17/201558 Metronidazole (Metronidazole) 500 Mg Tablet, 500 MG PO BID Prescribed by: WENDIE GONZALEZ on 09/19/221855 Review of Systems Review of Systems Constitutional: No chills, No diaphoresis, No dizziness, No fever, No malaise EENTM: No Blurred Vision, No Double Vision Respiratory: Denies Cough Cardiovascular: Denies Chest Pain Gastrointestinal: Abdominal Pain, Diarrhea, Nausea, Vomiting Musculoskeletal: back pain; No joint pain Skin: No change in color, No change in hair/nails Psychiatric/Neurological: Denies Anxiety, Denies Depressed (PAUL HWANG) All Other Systems Reviewed Negative Unless Noted: Yes (PAUL HWANG) Past Qltzuqo-Tqrzht-Ccguel Hx Patient Social History Tobacco Use?: Yes Tobacco type used: Cigarettes Smoking Status: Current Everyday Smoker Substance use?: No Alcohol Use?: Yes Alcohol Frequency: Once in a while Pt feels they are or have been: No (PAUL HWANG) Immunizations Up To Date Tetanus Booster (TDap): Less than 5yrs (PAUL HWANG) Seasonal Allergies Seasonal Allergies: Yes (PAUL HWANG) Past Medical History Surgery/Hospitalization HX: PMH: ASTHMA, HYPOTHYROIDISM Surgeries: Yes (COLONSCOPIES/POLYPS REMOVED, PARTIAL HYST/OVARIES INTACT, BOTOX-RECTAL ) Hysterectomy Respiratory: Yes (ASTHMA) Asthma Cardiac: No Neurological: No Reproductive Disorders: Yes Female Reproductive Disorders: 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 Sexually Transmitted Disease: No HIV/AIDS: No Genitourinary: Yes Kidney Stones Gastrointestinal: Yes (ANAL FISSURES) Polyps Musculoskeletal: Yes Chronic Back Pain Endocrine: No HEENT: No Loss of Vision: Denies Hearing Impairment: Denies Cancer: No Psychosocial: Yes Anxiety, Depression Integumentary: No Blood Disorders: No Adverse Reaction/Blood Tranf: No (N/A) (PAUL HWANG) Family Medical History No Pertinent Family Hx (PAUL HWANG) Physical Exam Vital Signs Vital Signs - First Documented 09/19/22 17:29 Temp 36.4 Pulse 71 Resp 18 B/P (MAP) 148/86 (106) Pulse Ox 95 (KEEGAN VILLANUEVA MD) Vital Signs Capillary Refill : (PAUL HWANG) Height/Weight/BMI Height: 5'7.00" Weight: 280lbs. 0.0oz. 127.823417an; 44.25 BMI Method:Stated General Appearance: WD/WN, no apparent distress HEENT: PERRL/EOMI, normal ENT inspection, TMs normal, pharynx normal Neck: non-tender, full range of motion, supple Respiratory: chest non-tender, lungs clear, normal breath sounds, no respiratory distress, no accessory muscle use Cardiovascular: regular rate, rhythm, no edema, no gallop, no JVD Gastrointestinal: normal bowel sounds, soft, no organomegaly, tenderness (Right lower quadrant tenderness) Extremities: normal range of motion, non-tender, normal inspection, no pedal edema Back: normal inspection, no CVA tenderness Neurologic/Psychiatric: protection mgr II-XII nml as tested, no motor/sensory deficits, alert, normal mood/affect, oriented x 3 Skin: normal color, warm/dry (PAUL HWANG) Progress/Results/Core Measures Results/Orders Lab Results Laboratory Tests Test 09/19/22 17:40 09/19/22 17:52 Range/Units White Blood Count 12.7 H 4.3-11.0 10^3/uL Red Blood Count 4.93 3.80-5.11 10^6/uL Hemoglobin 14.5 11.5-16.0 g/dL Hematocrit 42 35-52 % Mean Corpuscular Volume 86 80-99 fL Mean Corpuscular Hemoglobin 29 25-34 pg Mean Corpuscular Hemoglobin Concent 34 32-36 g/dL Red Cell Distribution Width 13.4 10.0-14.5 % Platelet Count 298 130-400 10^3/uL Mean Platelet Volume 10.0 9.0-12.2 fL Immature Granulocyte % (Auto) 0 % Neutrophils (%) (Auto) 52 42-75 % Lymphocytes (%) (Auto) 36 12-44 % Monocytes (%) (Auto) 8 0-12 % Eosinophils (%) (Auto) 3 0-10 % Basophils (%) (Auto) 0 0-10 % Neutrophils # (Auto) 6.6 1.8-7.8 X 10^3 Lymphocytes # (Auto) 4.5 H 1.0-4.0 X 10^3 Monocytes # (Auto) 1.0 0.0-1.0 X 10^3 Eosinophils # (Auto) 0.4 H 0.0-0.3 10^3/uL Basophils # (Auto) 0.1 0.0-0.1 10^3/uL Immature Granulocyte # (Auto) 0.1 0.0-0.1 10^3/uL Sodium Level 140 135-145 MMOL/L Potassium Level 3.9 3.6-5.0 MMOL/L Chloride Level 106 98-107 MMOL/L Carbon Dioxide Level 22 21-32 MMOL/L Anion Gap 12 5-14 MMOL/L Blood Urea Nitrogen 12 7-18 MG/DL Creatinine 0.84 0.60-1.30 MG/DL Estimat Glomerular Filtration Rate 88 BUN/Creatinine Ratio 14 Glucose Level 91 70-105 MG/DL Calcium Level 9.4 8.5-10.1 MG/DL Corrected Calcium 9.3 8.5-10.1 MG/DL Total Bilirubin 0.3 0.1-1.0 MG/DL Aspartate Amino Transf (AST/SGOT) 18 5-34 U/L Alanine Aminotransferase (ALT/SGPT) 20 0-55 U/L Alkaline Phosphatase 60 40-136 U/L Total Protein 7.3 6.4-8.2 GM/DL Albumin 4.1 3.2-4.5 GM/DL Lipase < 4 L 8-78 U/L Urine Color YELLOW Urine Clarity SL CLOUDY Urine pH 6.0 5-9 Urine Specific [place] >=1.030 1.016-1.022 Urine Protein NEGATIVE NEGATIVE Urine Glucose (UA) NEGATIVE NEGATIVE Urine Ketones NEGATIVE NEGATIVE Urine Nitrite NEGATIVE NEGATIVE Urine Bilirubin NEGATIVE NEGATIVE Urine Urobilinogen 0.2 < = 1.0 MG/DL Urine Leukocyte Esterase NEGATIVE NEGATIVE Urine RBC (Auto) NEGATIVE NEGATIVE Urine RBC 0-2 /HPF Urine WBC 0-2 /HPF Urine Squamous Epithelial Cells 5-10 /HPF Urine Crystals PRESENT H /LPF Urine Amorphous Sediment FEW RON URATES H /LPF Urine Bacteria MODERATE H /HPF Urine Casts NONE /LPF Urine Mucus NEGATIVE /LPF Urine Culture Indicated YES (KEEGAN VILLANUEVA MD) Micro Results Microbiology 09/19/22 Urine Culture - Final, Complete Gram Pos Mixed Bacterial Taty (KEEGAN VILLANUEVA MD) Vital Signs/I&O 09/19/22 09/19/22 17:29 19:18 Temp 36.4 36.4 Pulse 71 72 Resp 18 18 B/P (MAP) 148/86 (106) 127/84 Pulse Ox 95 96 (KEEGAN VILLANUEVA MD) Departure Communication (PCP) patient is a 42-year-old female presents the ED with a lower abdominal pain. Pain since Sunday. Intermittent vomiting and diarrhea yesterday. Denies of any mucousy or bloody stool. Continued pain worse in the right lower quadrant. Saw his primary care physician yesterday concern for kidney stone. Patient Was given Toradol and Flomax without much improvement. Worsening pain. Decreased urine output without any pain. Denies any fever, chills, chest pain, cough or shortness of breath. on arrival she is complaining right lower quadrant pain. Differential diagnosis of acute appendicitis, cystitis, ureterolithiasis, colitis, ovarian cyst. CBC, CMP, urinalysis was ordered. Urinalysis was n egative for infection. History of partial hysterectomy. CBC showed white blood count 12.7, chemistry otherwise unremarkable. CT abdomen pelvis acute on chronic colitis. Denied of any blood or mucousy stool. Infectious versus inflammatory. We will treat for potential infectious etiology with Cipro and Flagyl. Discussed outpatient follow-up with general surgery for further wendy luation. May require colonoscopy if continue having further symptoms. History of polyps. No history of cancer. Discussed stopping the Macrobid. She was given fentanyl with improvement of pain here. Discussed clear liquid diet for the next 2 to 3 days and then work into more of a bland diet. If any worsening symptoms return back to ED for further evaluation. Pain control. . Denies of any recent antibiotic use or travels (PAUL HWANG) Impression Primary Impression: Colitis Disposition: 01 HOME, SELF-CARE Condition: Stable Departure-Patient Inst. Decision time for Depature: 18:56 (PAUL HWANG) Referrals: ROSANNE DANG MD (PCP/Family) Primary Care Physician Patient Instructions: Colitis (DC) Scripts Ciprofloxacin HCl (Cipro) 500 Mg Tablet 500 MG PO BID for 7 Days, #14 TAB Prov: PAUL HWANG 09/19/22 Metronidazole (Metronidazole) 500 Mg Tablet 500 MG PO BID for 7 Days, #21 TAB Prov: PAUL HWANG 09/19/22 Work/School Note: Work Release Form Date Seen in the Emergency Department: September 19, 2022 Return to Work: September 22, 2022 ATTENDING PHYSICIAN NOTE: I was physically present as attending physician in the emergency department during the care of this patient, but I was not directly involved in the decision making or delivery of care for this patient. (KEEGAN VILLANUEVA MD) PAUL HWANG September 19, 2022 17:36 KEEGAN VILLANUEVA MD September 22, 2022 06:20
[2022-09-19] MEDS ORDERED: IOHEXOL 350 MG/ML 100 ML (OMNIPAQUE 350) VIAL IV ONE ×2 (17:45→18:15)
[2022-09-19] MEDS ORDERED: KETOROLAC 30 MG/ML VIAL IVP ONE (17:45)
[2022-09-19] MEDS ORDERED: ONDANSETRON 4 MG/2 ML (SDV) Z0FRAN IVP ONE (17:45)
[2022-09-19] MEDS ORDERED: NS 100 ML (IVPB) BAG IV ONE ×2 (17:45→18:15)
[2022-09-19] MEDS ORDERED: HOLD METFORMIN - RECEIVED CONTRAST 20 ML VIAL IV SCH ×2 (17:45→18:15)
[2022-09-19 17:48] LABS: BASOPHILS # (AUTO) 0.1 10^3/uL (0.0-0.1); BASOPHILS % (AUTO) 0 % (0-10); EOSINOPHILS # (AUTO) 0.4 10^3/uL (0.0-0.3); EOSINOPHILS % (AUTO) 3 % (0-10); HEMATOCRIT 42 % (35-52); HEMOGLOBIN 14.5 g/dL (11.5-16.0); LYMPHOCYTES # (AUTO) 4.5 X 10^3 (1.0-4.0); LYMPHOCYTES % (AUTO) 36 % (12-44); MEAN CORPUSCULAR HEMOGLOBIN 29 pg (25-34); MEAN CORPUSCULAR HGB CONC 34 g/dL (32-36); MEAN CORPUSCULAR VOLUME 86 fL (80-99); MONOCYTES % (AUTO) 8 % (0-12); NEUTROPHILS # (AUTO) 6.6 X 10^3 (1.8-7.8); NEUTROPHILS % (AUTO) 52 % (42-75); PLATELET COUNT 298 10^3/uL (130-400); WHITE BLOOD COUNT 12.7 10^3/uL (4.3-11.0)
[2022-09-19 17:57] LABS: BILIRUBIN,URINE NEGATIVE (NEGATIVE); CLARITY,URINE SL CLOUDY; COLOR,URINE YELLOW; GLUCOSE, URINE (UA) NEGATIVE (NEGATIVE); KETONES,URINE NEGATIVE (NEGATIVE); LEUKOCYTE ESTERASE ,URINE NEGATIVE (NEGATIVE); NITRITE,URINE NEGATIVE (NEGATIVE); PROTEIN,URINE NEGATIVE (NEGATIVE)
[2022-09-19 18:03] LABS: ALBUMIN 4.1 GM/DL (3.2-4.5); CHLORIDE 106 MMOL/L (98-107); POTASSIUM 3.9 MMOL/L (3.6-5.0); SODIUM 140 MMOL/L (135-145)
[2022-09-19 18:05] LABS: CALCIUM 9.4 MG/DL (8.5-10.1)
[2022-09-19 18:06] LABS: GLUCOSE 91 MG/DL (70-105); TOTAL PROTEIN 7.3 GM/DL (6.4-8.2)
[2022-09-19 18:07] LABS: CARBON DIOXIDE 22 MMOL/L (21-32)
[2022-09-19 18:08] LABS: BILIRUBIN,TOTAL 0.3 MG/DL (0.1-1.0)
[2022-09-19 18:09] LABS: ALKALINE PHOSPHATASE 60 U/L (40-136); CREATININE SERUM 0.84 MG/DL (0.60-1.30); GFR ESTIMATED 88
[2022-09-19 18:10] LABS: BUN/CREATININE RATIO 14
[2022-09-19 18:12] LABS: ALANINE AMINOTRANSFERASE 20 U/L (0-55)
[2022-09-19 18:13] LABS: LIPASE < 4 U/L (8-78)
[2022-09-19 18:21] LABS: AMORPHOUS SEDIMENT,UR FEW AMOR URATES /LPF; BACTERIA,URINE MODERATE /HPF; RBC,URINE 0-2 /HPF; WBC,URINE 0-2 /HPF
--- NOTE | 2022-09-19 18:28 | Diagnostic Imaging Report ---
PROCEDURE: CT abdomen and pelvis with contrast, rule out appendicitis. TECHNIQUE: Multiple contiguous axial images were obtained through the abdomen and pelvis after the administration of intravenous contrast. All CT scans use one or more of the following dose optimizing techniques: automated exposure control, MA and/or KvP adjustment based on patient size and exam type or iterative reconstruction. INDICATION: Right lower quadrant abdominal pain with nausea, vomiting and diarrhea as well as hematuria. COMPARISON: Correlation is made with prior CT from 04/02/2019. FINDINGS: The lung bases are clear. The liver and gallbladder are unremarkable. There is no biliary ductal dilatation. The pancreas and spleen are unremarkable. No adrenal mass is identified. Right kidney is unremarkable. There is a 5 mm nonobstructing calculus in the lower pole of the left kidney. No definite ureteral calculi or hydronephrosis is identified. Aorta is nonaneurysmal. There does appear to be some mild wall thickening and pericolonic inflammatory stranding involving the right colon. There is some fatty replacement of the submucosal portion of the right colon, likely owing to chronic colitis as well. Appendix is visualized and appears unremarkable. There is no bowel obstruction. Small bowel loops are normal in caliber. There is no free fluid or fluid collection identified. There is a small fat-containing umbilical hernia. The bladder is decompressed. Uterus appears surgically absent. IMPRESSION: 1. Acute on chronic colitis involving the right colon. No definite CT evidence of acute appendicitis is identified. 2. Small fat-containing umbilical hernia. 3. Nonobstructing left-sided nephrolithiasis. Dictated by: Dictated on workstation # [id number]
[2022-09-19] MEDS ORDERED: fentaNYL INJ 100 MCG/2 ML AMP IVP STA (18:53)
[2022-09-19] MEDS ORDERED: METR-145 PO (18:56)
[2022-09-19] MEDS ORDERED: CIPR-225 PO (18:56)
[2022-09-19] MEDS ORDERED: metroNIDAZOLE 500 MG (FLAGYL) TAB PO STA (19:14)
[2022-09-19 19:18] VITALS: BP 127/84
== END 2022-09-19 19:18 | disposition home or self-care (01) ==
LOC: EDUNIT# 17:16 → ER 17:18
DX: K52.9 Noninfective gastroenteritis and colitis, unspecified (principal); N39.0 Urinary tract infection, site not specified; F17.210 Nicotine dependence, cigarettes, uncomplicated; Z90.711 Acquired absence of uterus with remaining cervical stump
CPT/HCPCS: 36415; 74177; 80053; 81000; 83690; 85025; 87088

== ENCOUNTER 2023-02-21 05:38 | Outpatient (CLI) | payer OTHER ==
[~2023-02-21] VITALS: Ht 170.2 cm; Wt 101.0 kg
[~2023-02-21 05:38] MED LIST changes: +CIPR-225 PO
[2023-02-26] MEDS ORDERED: TIRZ2.5P SQ (12:56)
[2023-02-26] MEDS ORDERED: ASCO500T17 PO (12:57)
[2023-02-26] MEDS ORDERED: LEVO50TA6 PO (12:57)
[2023-02-26] MEDS ORDERED: CYAN250010 PO (12:57)
[2023-02-26] MEDS ORDERED: CIDE300T3 PO (12:57)
== END 2023-02-26 13:03 | disposition home or self-care (01) ==
LOC: PREOP 05:38
PROVIDERS: ATTEND Surgery
DX: Z01.818 Encounter for other preprocedural examination (principal)

== ENCOUNTER 2023-03-06 07:52 | Day surgery (SDC) | payer OTHER ==
[~2023-03-06] VITALS: Ht 170.2 cm; Wt 101.0 kg
[~2023-03-06 07:52] MED LIST changes: +ASCO500T17 PO; +CIDE300T3 PO; +CYAN250010 PO; +LEVO50TA6 PO; +TIRZ2.5P SQ
[2023-03-06] MEDS ORDERED: LACTATED RINGERS 1,000 ML 1,000 ML IV STA (08:04)
[2023-03-06 08:28] VITALS: BP 108/71
[2023-03-06 09:55] VITALS: BP 111/63
--- NOTE | 2023-03-06 09:56 | Progress Note-Post Operative ---
Post-Operative Progess Note Surgeon (s)/Healthcare Risk Control Consultant (s) Surgeon EVERARDO HANNA DO Healthcare Risk Control Consultant: n/a Pre-Operative Diagnosis Rectal pain Post-Operative Diagnosis Rectal polyp Procedure & Operative Findings Date of Procedure 03/06/23 Procedure Performed/Findings Colonoscopy w/ hot bx polypectomy x1 Anesthesia Type per CHIEF ENTERPRISE ARCHITECT Estimated Blood Loss Estimated blood loss (mL): none Specimens/Packing Specimens Removed Rectal polyp EVERARDO HANNA DO Mar 06, 2023 09:56
--- NOTE | 2023-03-06 09:57 | Discharge Inst-Simple/Standard ---
Discharge Inst-Standard Patient Instructions/Follow Up Plan of Care/Instructions/FU: Karla 2 weeks Activity as Tolerated: Yes Discharge Diet: Regular Diet EVERARDO HANNA DO Mar 06, 2023 09:57
[2023-03-06 10:00] VITALS: BP 97/55
[2023-03-06 10:31] VITALS: BP 97/55
--- NOTE | 2023-03-06 11:19 | Anesthesia-General Post-Op ---
MAC Patient Condition Mental Status/LOC: Same as Preop Cardiovascular: Satisfactory Nausea/Vomiting: Absent Respiratory: Satisfactory Pain: Controlled Complications: Absent Post Op Complications Complications None Follow Up Care/Instructions Patient Instructions None needed. Anesthesiology Discharge Order Discharge Order Patient is doing well, no complaints, stable vital signs, no apparent adverse anesthesia problems. No complications reported per nursing. ANJELICA CALLES CRNA Mar 06, 2023 11:19
--- NOTE | 2023-03-06 16:34 | OPERATIVE REPORT ---
DATE OF SERVICE: 03/06/2023 PREOPERATIVE DIAGNOSIS: Rectal pain. POSTOPERATIVE DIAGNOSIS: Rectal polyps. PROCEDURE: Colonoscopy with hot biopsy polypectomy x1. SURGEON: Everardo Acosta DO ANESTHESIA: Per [employer]EST AND CONSERVATION WORKER. ESTIMATED BLOOD LOSS: None. COMPLICATIONS: None. INDICATIONS: The patient is a 43-year-old female with rectal pain. She understands risks and benefits of procedure and wishes to proceed. Consent was signed in chart. DESCRIPTION OF PROCEDURE: The patient was taken to endoscopy suite, placed in left lateral recumbent position. Timeout was performed. Digital rectal exam was performed. No palpable polyps, masses or ulcerations. Scope was inserted in the rectum and advanced all the way to the cecum with minimal difficulty. Prep was adequate. Scope was slowly retracted back. No polyps, masses or ulcerations within the cecum, ascending, transverse, descending and sigmoid colon. In the rectum, a small polyp was present, which hot biopsy polypectomy was performed. Scope was retroflexed noting no other pathology. Scope was returned to its normal position, slowly withdrawn until completely removed, noting no other pathology. The patient tolerated the procedure well without complications, taken to recovery room in stable condition. RECOMMENDATIONS: The patient will need repeat colonoscopy in 5 years. Any issues before that, she will be seen at that time. Job ID: [id number] DocumentID: [id number] Dictated Date: 03/06/2023 09:56:20 Coating Machine Helper Date: 03/06/2023 16:32:00 Dictated By: EVERARDO ACOSTA DO
== END 2023-03-06 10:31 | disposition home or self-care (01) ==
LOC: ENDO 07:52
PROVIDERS: ATTEND Surgery
DX: K62.1 Rectal polyp (principal); K62.89 Other specified diseases of anus and rectum; F17.210 Nicotine dependence, cigarettes, uncomplicated; Z80.0 Family history of malignant neoplasm of digestive organs